=== PATIENT | male | born 1935 | race Caucasian/White ===

== ENCOUNTER → 2018-03-08 | Outpatient (CLI) | payer OTHER | END | disposition home or self-care (01) | LOC: C.LABMFLN 17:56 | PROVIDERS: ATTEND Family Medicine | DX: E03.9 Hypothyroidism, unspecified (principal); E78.5 Hyperlipidemia, unspecified ==

== ENCOUNTER 2021-12-16 10:36 | Observation (INO) ==
[2021-12-16] MEDS ORDERED: SODIUM CHLORIDE 0.9% 500 ML IV ONE (11:13)
--- NOTE | 2021-12-16 11:32 | Emergency Department Note ---
History of Present Illness General Chief complaint: Syncope Stated complaint: HERE 12/14, SYNCOPE EPISODE, POSS HIT HEAD Time Seen by Provider: 12/16/21 10:57 Source: patient Mode of arrival: ambulatory Limitations: no limitations History of Present Illness Provider complaint: Dizziness, syncope Onset (ago): hour(s) Location: head Maximum Pain Intensity: 4 Exacerbated By: + movement Associated symptoms: + other Treatments prior to arrival: none This is an 86-year-old male who presents the emergency department with daughter bedside due to concern for persistent dizziness and a syncopal event this morning. Patient states he felt dizzy when he first woke up in bed and sat in his bed for some time waiting for this to pass. He states he felt better enough to try and get to the restroom which is why he woke up initially. He states while standing and urinating in the bathroom he began to experience "spinning" and began to fall and lose consciousness. Patient states he did try to grab onto the toilet and does have a bruise on his right forearm as a result of this. Patient believes he may have been unconscious very briefly, but came to and was able to close little the toilet and then sit. He states he stopped for a while, and his daughter who stays with him overnight came to check on him. He eventually was able to stand up and go back to bed and felt slightly improved. Daughter states after she had to run home briefly she came back to check on him again and he complained of dizziness again. He states he did drink water this morning and took his usual medications. Daughter states he was recently restarted on a blood pressure medication. She states he historically has been very sensitive to medications. He denies fevers or chills, although does admit to a mild productive cough over the last several days. He denies any change in bowel or bladder function, denies chest pain, palpitations, shortness of breath, abdominal pain, or leg swelling. Daughter states he did have Covid back in July, and did seem to recover although did have complications including multiple DVT/PEs. Patient does have a prior history of DVT. He is currently ta long [place]. Pt seen during a time of high acuity and national emergency pandemic while wearing PPE. Home Medications Medication Instructions Recorded Confirmed Type A-C-E-zinc ox-cupric ox-lutein 1 tab PO DAILY 05/23/19 12/16/21 History [Ocular Vitamins] aspirin 81 mg tablet,delayed 81 mg PO DAILY #150 tab 05/23/19 12/16/21 Rx release dextran 70-hypromellose 0.1 %-0.3 1 drops OP DAILY ml 05/23/19 12/16/21 History % eye drops nitroglycerin 0.4 mg sublingual 0.4 mg SL .COMPLEX PRN tab 05/23/19 12/16/21 History tablet cetirizine 10 mg capsule 10 mg PO HS PRN cap 06/12/20 12/16/21 History pravastatin 80 mg tablet 80 mg PO DAILY #90 tab 12/15/20 12/16/21 Rx levothyroxine 50 mcg tablet 75 mcg PO DAILY #135 tab 03/15/21 12/16/21 Rx azelastine 137 mcg (0.1 %) nasal 2 spray INTRANASAL BID #30 ml 10/07/21 12/16/21 Rx spray aerosol amlodipine 5 mg tablet (Norvasc) 5 mg PO BID #60 tab 12/11/21 12/16/21 Rx rivaroxaban 20 mg tablet (Xarelto) 20 mg PO QPM 12/16/21 12/16/21 History Allergies Allergy/AdvReac Type Severity Reaction Status Date / Time rosuvastatin [From Crestor] AdvReac Intermediate cramps Verified 12/16/21 11:38 JENARO Inhibitors AdvReac Unknown PER PT'S Verified 12/16/21 11:38 DAUGHTER UNKNOWN SOME REQUIRED HOSPITALIZATION. acyclovir AdvReac Unknown PER PT'S Verified 12/16/21 11:38 DAUGHTER UNKNOWN SOME REQUIRED HOSPITALIZATION. amoxicillin AdvReac Unknown PER PT'S Verified 12/16/21 11:38 DAUGHTER UNKNOWN SOME REQUIRED HOSPITALIZATION. atorvastatin AdvReac Unknown PER PT'S Verified 12/16/21 11:38 DAUGHTER UNKNOWN SOME REQUIRED HOSPITALIZATION. benzonatate AdvReac Unknown PER PT'S Verified 12/16/21 11:38 [From Carrillo Bell] DAUGHTER UNKNOWN SOME REQUIRED HOSPITALIZATION. Beta-Adrenergic Agents AdvReac Unknown PER PT'S Verified 12/16/21 11:38 DAUGHTER UNKNOWN SOME REQUIRED HOSPITALIZATION. cefaclor AdvReac Unknown PER PT'S Verified 12/16/21 11:38 DAUGHTER UNKNOWN SOME REQUIRED HOSPITALIZATION. cephalexin AdvReac Unknown PER PT'S Verified 12/16/21 11:38 DAUGHTER UNKNOWN SOME REQUIRED HOSPITALIZATION. ciprofloxacin AdvReac Unknown PER PT'S Verified 12/16/21 11:38 DAUGHTER UNKNOWN SOME REQUIRED HOSPITALIZATION. clarithromycin AdvReac Unknown PER PT'S Verified 12/16/21 11:38 DAUGHTER UNKNOWN SOME REQUIRED HOSPITALIZATION. lisinopril AdvReac Unknown PER PT'S Verified 12/16/21 11:38 DAUGHTER UNKNOWN SOME REQUIRED HOSPITALIZATION. metoprolol [From Toprol XL] AdvReac Unknown PER PT'S Verified 12/16/21 11:38 DAUGHTER UNKNOWN SOME REQUIRED HOSPITALIZATION. morphine AdvReac Unknown PER PT'S Verified 12/16/21 11:38 DAUGHTER UNKNOWN SOME REQUIRED HOSPITALIZATION. phenylpropanolamine AdvReac Unknown PER PT'S Verified 12/16/21 11:38 DAUGHTER UNKNOWN SOME REQUIRED HOSPITALIZATION. promethazine [From Phenergan] AdvReac Unknown PER PT'S Verified 12/16/21 11:38 DAUGHTER UNKNOWN SOME REQUIRED HOSPITALIZATION. propranolol AdvReac Unknown PER PT'S Verified 12/16/21 11:38 DAUGHTER UNKNOWN SOME REQUIRED HOSPITALIZATION. simvastatin AdvReac Unknown PER PT'S Verified 12/16/21 11:38 DAUGHTER UNKNOWN SOME REQUIRED HOSPITALIZATION. Sulfa (Sulfonamide AdvReac Unknown PER PT'S Verified 12/16/21 11:38 Antibiotics) DAUGHTER UNKNOWN SOME REQUIRED HOSPITALIZATION. theophylline AdvReac Unknown PER PT'S Verified 12/16/21 11:38 DAUGHTER UNKNOWN SOME REQUIRED HOSPITALIZATION. tramadol AdvReac Unknown PER PT'S Verified 12/16/21 11:38 DAUGHTER UNKNOWN SOME REQUIRED HOSPITALIZATION. Past Med/Surg History Medical History (Updated 12/16/21 @ 20:01 by Lissett Benson DO) Allergic rhinitis Asplenia Benign essential hypertension CAD (coronary artery disease) H/O primary malignant neoplasm of urinary bladder History of pulmonary embolism Hyperlipidemia Hypothyroidism Lumbar radiculopathy Peripheral neuropathy Primary hypercoagulable state Stroke Surgical History H/O splenectomy History of bladder surgery Hx of CABG S/P appendectomy S/P carotid endarterectomy S/P knee replacement Family History Mother Heart disease Hypertension Brother , Bladder Heart disease Diabetes Hypertension Cancer Myocardial infarction Father Hypertension Son No problems noted. Sister Hypertension Denies family history of Ovarian cancer Prostate cancer Breast cancer Social History Smoking Status: Former smoker Tobacco Type: Pipe Age Started Using Tobacco: 15; Age Quit Using Tobacco: 64; Second Hand Exposure: Yes (Father smoked); Hx Alcohol Use: No Hx Substance Use: No Preferred Language: Latvian Communication Ability: Effective Visual Impairment: Limited Hearing Ability: Use of Hearing Aid Fisherman Helper Required: No Beliefs That Will Affect Care: None marital status: Current Living Situation: Spouse and Family Current Living Situation Comment: Son current occupational status: retired current occupation: [employer] How many Children do You have: 6 Feels Safe at Home: Yes Childhood Exposure to Second-Hand Smoke: Yes (Father smoked) Diet Comment: Regular diet caffeine: Yes (coffee) during the past year weight has: remained stable Dental Care, Regularly: No Physical Activity Frequency: Daily Physical Activity Frequency 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 Seatbelt Use: always Sunscreen Use: No Do you think of yourself as: straight/heterosexual Assistive Devices: Denture - Upper, Denture - Lower, Glasses, Hearing Aid - Left and Hearing Aid - Right Review of Systems A total of 10 systems reviewed and were otherwise negative All systems reviewed & are unremarkable except as noted in HPI & below Physical Exam Vital Signs Vital Signs - 24 hr 12/16/21 10:40 12/16/21 10:50 12/16/21 12:37 Temperature 36.6 C Temperature Source Temporal Artery Scan Pulse Rate 76 Pulse Rate [Apical] 64 Pulse Rhythm Regular Pulse Strength Normal Respiratory Rate 20 20 Respiratory Effort / Characteristics Non-Labored Spontaneous Respiratory Depth Normal Respiratory Pattern Regular Blood Pressure 151/82 H Blood Pressure [Left Arm] 166/91 H Blood Pressure Mean 105 Blood Pressure Mean [Left Arm] 116 Blood Pressure Position Sitting Pulse Oximetry 92 93 96 Oxygen Delivery Method Room Air Room Air Room Air Sepsis Recent Fever Within 48 Hours No Sepsis New/Unexplained Change in Mental Status No Sepsis Action Taken by Nursing No Action Required 12/16/21 13:33 12/16/21 14:18 12/16/21 16:00 Temperature Temperature Source Pulse Rate Pulse Rate [Apical] 73 77 75 Pulse Rhythm Pulse Strength Respiratory Rate 19 19 23 Respiratory Effort / Characteristics Non-Labored Non-Labored Respiratory Depth Respiratory Pattern Blood Pressure Blood Pressure [Left Arm] 193/88 H 151/78 H 150/75 H Blood Pressure Mean Blood Pressure Mean [Left Arm] 123 102 100 Blood Pressure Position Pulse Oximetry 94 95 95 Oxygen Delivery Method Room Air Room Air Room Air Sepsis Recent Fever Within 48 Hours Sepsis New/Unexplained Change in Mental Status Sepsis Action Taken by Nursing GENERAL: alert, well appearing, well nourished, no distress, non-toxic EYE EXAM: normal conjunctiva, PERRL and EOM's grossly intact OROPHARYNX: no exudate, no erythema, lips, buccal mucosa, and tongue normal and mucous membranes are moist NECK: supple, no nuchal rigidity, no adenopathy, non-tender LUNGS: Clear to auscultation. Normal chest wall mechanics, no w/r/r HEART: no murmurs, S1 normal and S2 normal ABDOMEN: abdomen soft, non-tender, normo-active bowel sounds, no masses, no rebound or guarding. BACK: Back is symmetrical on inspection and there is no deformity, no midline tenderness, no CVA tenderness. SKIN: no rashes and no bruising UPPER EXTREMITIES: upper extremities are grossly normal. FROM, nml pulses b/l. LOWER EXTREMITIES: No pitting edema. FROM, nml pulses b/l. NEURO EXAM: Normal sensorium, cranial nerves II-XII grossly intact, normal speech, no gross weakness of arms, no gross weakness of legs. No ataxia. Gross sensation intact. Course Course 1405: Updated pt and daughter at bedside. BP still fluctuates. Pt states he still feels dizzy. Administered Medications Discontinued Medications Sodium Chloride (Nss) 500 mls @ 999 mls/hr IV .Q31M ONE Stop: 12/16/21 11:43 Last Infusion: 12/16/21 13:00 Dose: 0 mls/hr Documented by: [id number] Admin: 12/16/21 12:22 Dose: 999 mls/hr Documented by: [id number] Ioversol (Optiray 320 125ml) 121 ml IV ONCE ONE Stop: 12/16/21 13:26 Last Admin: 12/16/21 13:25 Dose: 121 ml Documented by: [id number] Medical Decision Making Differential Diagnosis Differential diagnosis includes etiologies such as benign positional vertigo, dehydration, hypovolemia, anemia, tumor, infection, hypoglycemia, electrolyte abnormalities, cardiac sources, intracerebral event, toxicologic, neurologic, as well as others were entertained. Medical Records Attestation: I reviewed the patient's medical records. Home Medications Current Medication List: was personally reviewed by me Laboratory Data Attestation: I reviewed the patient's lab results. Result diagrams: 12/16/21 12:05 12/16/21 12:05 Lab Results 12/16/21 12/16/21 12/16/21 Range/Units 12:05 12:05 12:05 WBC 9.67 (4.8-10.8) K/uL RBC 4.82 (4.7-6.1) M/uL Hgb 14.7 (14.0-18.0) g/dL Hct 44.2 (42-52) % MCV 91.7 (80-100) fL MCH 30.5 (25-34) pg MCHC 33.3 (32-36) g/dL RDW Std Deviation 46.5 H (36.4-46.3) fL RDW Coeff of Ashley 13.8 (11.5-14.5) % Plt Count 323 (130-400) K/uL MPV 10.6 H (7.4-10.4) fL Immature Gran % (Auto) 0.2 % Neut % (Auto) 52.3 % Lymph % (Auto) 29.7 % [place] % (Auto) 14.2 % Eos % (Auto) 2.7 % Baso % (Auto) 0.9 % Neut # (Auto) 5.06 (1.4-6.5) K/uL Lymph # (Auto) 2.87 (1.2-3.4) K/uL [place] # (Auto) 1.37 H (0.11-0.59) K/uL Eos # (Auto) 0.26 (0-0.5) K/uL Baso # (Auto) 0.09 (0-0.2) K/uL Immature Gran # (Auto) 0.02 (0.00-0.02) K/uL Sodium 140 (136-145) mmol/L Potassium 4.7 (3.5-5.1) mmol/L Chloride 108 H (98-107) mmol/L Carbon Dioxide 27 (21-32) mmol/L Anion Gap 5 (3-11) BUN 13 (6-23) mg/dl Creatinine 1.00 (0.6-1.4) mg/dl Est Cr Clr Drug Dosing 48.7 ml/min Est GFR ( Amer) 78.1 ml/min Est GFR (Non-Af Amer) 67.4 ml/min BUN/Creatinine Ratio 13.0 (10-20) Glucose 73 (70-99(Fasting)) mg/dl Calcium 9.7 (8.5-10.1) mg/dl Magnesium 2.1 (1.7-2.4) mg/dl Total Bilirubin 0.4 (0.2-1.0) mg/dl AST 20 (13-39) U/L ALT 14 (7-52) U/L Alkaline Phosphatase 80 (34-104) U/L Troponin I < 0.03 (0-0.04) ng/ml B-Natriuretic Peptide (0-100) pg/ml Total Protein 6.8 (6.0-8.3) gm/dl Albumin 3.9 (3.4-5.0) gm/dl Globulin 2.9 (2.5-4.0) gm/dl Albumin/Globulin Ratio 1.3 (0.9-2) Lipase 29 (11-82) U/L TSH 2.375 (0.300-4.500) uIu/ml Urine Color Urine Appearance (Clear) Urine pH (4.5-7.5) Ur Specific [place] (1.000-1.030) Urine Protein (Negative) Urine Glucose (UA) (Negative) Urine Ketones (Negative) Urine Blood (Negative) Urine Nitrite (Negative) Urine Bilirubin (Negative) Urine Urobilinogen (Negative) Ur Leukocyte Esterase (Negative) SARS-CoV-2, RNA, NAAT (NEGATIVE) 12/16/21 12/16/21 12/16/21 Range/Units 12:17 13:30 15:17 WBC (4.8-10.8) K/uL RBC (4.7-6.1) M/uL Hgb (14.0-18.0) g/dL Hct (42-52) % MCV (80-100) fL MCH (25-34) pg MCHC (32-36) g/dL RDW Std Deviation (36.4-46.3) fL RDW Coeff of Ashley (11.5-14.5) % Plt Count (130-400) K/uL MPV (7.4-10.4) fL Immature Gran % (Auto) % Neut % (Auto) % Lymph % (Auto) % [place] % (Auto) % Eos % (Auto) % Baso % (Auto) % Neut # (Auto) (1.4-6.5) K/uL Lymph # (Auto) (1.2-3.4) K/uL [place] # (Auto) (0.11-0.59) K/uL Eos # (Auto) (0-0.5) K/uL Baso # (Auto) (0-0.2) K/uL Immature Gran # (Auto) (0.00-0.02) K/uL Sodium (136-145) mmol/L Potassium (3.5-5.1) mmol/L Chloride (98-107) mmol/L Carbon Dioxide (21-32) mmol/L Anion Gap (3-11) BUN (6-23) mg/dl Creatinine (0.6-1.4) mg/dl Est Cr Clr Drug Dosing ml/min Est GFR ( Amer) ml/min Est GFR (Non-Af Amer) ml/min BUN/Creatinine Ratio (10-20) Glucose (70-99(Fasting)) mg/dl Calcium (8.5-10.1) mg/dl Magnesium (1.7-2.4) mg/dl Total Bilirubin (0.2-1.0) mg/dl AST (13-39) U/L ALT (7-52) U/L Alkaline Phosphatase (34-104) U/L Troponin I (0-0.04) ng/ml B-Natriuretic Peptide 89 (0-100) pg/ml Total Protein (6.0-8.3) gm/dl Albumin (3.4-5.0) gm/dl Globulin (2.5-4.0) gm/dl Albumin/Globulin Ratio (0.9-2) Lipase (11-82) U/L TSH (0.300-4.500) uIu/ml Urine Color [place] Urine Appearance Clear (Clear) Urine pH 8.0 H (4.5-7.5) Ur Specific [place] 1.009 (1.000-1.030) Urine Protein Negative (Negative) Urine Glucose (UA) Negative (Negative) Urine Ketones Negative (Negative) Urine Blood Negative (Negative) Urine Nitrite Negative (Negative) Urine Bilirubin Negative (Negative) Urine Urobilinogen Negative (Negative) Ur Leukocyte Esterase Negative (Negative) SARS-CoV-2, RNA, NAAT NEGATIVE (NEGATIVE) Imaging Data Radiologist's Impression: Chest X-Ray 12/16/21 11:13 XR chest 1V portable HISTORY: cough, syncope COMPARISON: None. FINDINGS: The cardiac silhouette is borderline enlarged. There are poststerno patricia changes. There are old, healed left-sided rib fractures. A few bibasilar linear densities favor subsegmental atelectasis are scarring. No focal lung consolidations to suggest pneumonia. No evidence for pulmonary edema. There is mild emphysema. There is a 5.4 cm lobular density at the right lung base. IMPRESSION: 1. No focal lung consolidations to suggest pneumonia. 2. Emphysema. 3. Mild cardiomegaly. 4. A 5.4 cm lobular density the right lung base. Although nonspecific, this favors a fat-containing Bochdalek hernia. Follow-up nonemergent chest CT can be used for confirmation or comparison to prior studies. ACT 112: Negative or not required by law. Electronically signed by: Parviz Alcantara M.D. 12/16/2021 11:[address] 12/16/21 11:13 CT OF THE HEAD WITHOUT CONTRAST CLINICAL HISTORY: dizzy, headache, blurred vision COMPARISON STUDY: Head CT December 14, 2021. CT DOSE: 1178.61 mGy.cm TECHNIQUE: Helical axial images of the head were obtained without IV contrast. Automated exposure control was utilized for the study. A dose lowering technique was utilized adhering to the principles of ALARA. FINDINGS: No acute intracranial hemorrhage, midline shift or mass effect is present. Left basal ganglia/periventricular infarcts are noted. There is associated mild dilatation of the left lateral ventricle. Basal cisterns are patent. There are no extra axial collections. There are no findings to suggest acute dural sinus thrombosis or acute territorial infarct. Right mastoid air cells are opacified. Left mastoid air cells are partially opacified. Right maxillary sinus is nearly entirely opacified. Extensive ethmoid and right femur sinus mucosal thickening is present. Mild left maxillary sinus mucosal thickening. These findings are unchanged. IMPRESSION: 1. No acute intracranial findings. 2. 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 No change in appearance of the brain. 3. Bilateral mastoid effusions and paranasal sinus disease, as above. ACT 112: Negative or not required by law. Electronically signed by: Jhon Elizondo M.D. 12/16/2021 1:37 PM Head CTA 12/16/21 11:13 HEAD & NECK CTA HISTORY: dizzy, headache, blurred vision TECHNIQUE: Multiaxial CT images of the head were performed following the intravenous administration of contrast to evaluate the major cerebral vessels. Multiaxial CT images of the neck were also performed following the intravenous administration of contrast to evaluate the major cervical vessels. Maximum intensity projection images were also obtained. A dose lowering technique was utilized adhering to the principles of ALARA. COMPARISON: Head CT 12/14/2021. FINDINGS: Head CTA: The major dural venous sinuses are patent. No significant stenosis or occlusion within the right MCA. The right A1 segment is absent likely on a devel opmental basis. The remaining bilateral ACAs are widely patent. Moderate multifocal narrowing of up to 60% within the proximal left MCA. There is a hypoplastic distal right vertebral artery demonstrating mild to moderate multifocal narrowing due to the calcified plaque. There is mild focal narrowing within the distal left vertebral artery due to the calcified plaque. There is a 5 mm segment of high-grade stenosis involving the proximal left SALES DATA ANALYST. The right SALES DATA ANALYST is widely patent. Calcified plaque within the bilateral carotid siphons resulting in mild diffuse narrowing of the left internal carotid artery and mild to moderate narrowing of the right internal carotid artery. The right internal carotid artery demonstrates up to 50% stenosis. No aneurysms identified. Near- complete opacification of the right maxillary sinus, ethmoid air cells, and right frontal sinus. This remains unchanged. Bilateral mastoid effusions right greater than left and opacification the right middle ear cavity persists. Neck CTA: Mild focal narrowing within the proximal right subclavian artery due to the calcified plaque. Calcified plaque within the normal caliber aortic arch. The bilateral common carotid and vertebral arteries are widely patent. The left internal carotid artery is widely patent. There is mild focal narrowing of approximately 30% within the distal right internal carotid artery best seen on image 321. Focal nodule within the left side of the vallecula measuring 9 mm. This is best seen image 240. IMPRESSION: 1. A 5 mm segment of high-grade stenosis involving the proximal left SALES DATA ANALYST. 2. Multifocal areas of [id number] narrowing within the left MCA, bilateral distal vertebral arteries, distal right cervical internal carotid artery, bilateral intracranial internal carotid arteries. 3. No aneurysm identified. 4. The bilateral common carotid left internal carotid artery widely patent. 5. A 9 mm nodule left side of the vallecula. Direct visualization recommended for further evaluation. ACT 112: Negative or not required by law. Electronically signed by: Parviz Alcantara M.D. 12/16/2021 1:51 PM Neck CTA 12/16/21 11:13 HEAD & NECK CTA HISTORY: dizzy, headache, blurred vision TECHNIQUE: Multiaxial CT images of the head were performed following the intravenous administration of contrast to evaluate the major cerebral vessels. Multiaxial CT images of the neck were also performed following the intravenous administration of contrast to evaluate the major cervical vessels. Maximum intensity projection images were also obtained. A dose lowering technique was utilized adhering to the principles of ALARA. COMPARISON: Head CT 12/14/2021. FINDINGS: Head CTA: The major dural venous sinuses are patent. No significant stenosis or occlusion within the right MCA. The right A1 segment is absent likely on a developmental basis. The remaining bilateral ACAs are widely patent. Moderate multifocal narrowing of up to 60% within the proximal left MCA. There is a hypoplastic distal right vertebral artery demonstrating mild to moderate multifocal narrowing due to the calcified plaque. There is mild focal narrowing within the distal left vertebral artery due to the calcified plaque. There is a 5 mm segment of high-grade stenosis involving the proximal left SALES DATA ANALYST. The right SALES DATA ANALYST is widely patent. Calcified plaque within the bilateral carotid siphons resulting in mild diffuse narrowing of the left internal carotid artery and mild to moderate narrowing of the right internal carotid artery. The right internal carotid artery demonstrates up to 50% stenosis. No aneurysms identified. Near- complete opacification of the right maxillary sinus, ethmoid air cells, and right frontal sinus. This remains unchanged. Bilateral mastoid effusions right greater than left and opacification the right middle ear cavity persists. Neck CTA: Mild focal narrowing within the proximal right subclavian artery due to the calcified plaque. Calcified plaque within the normal caliber aortic arch. The bilateral common carotid and vertebral arteries are widely patent. The left internal carotid artery is widely patent. There is mild focal narrowing of approximately 30% within the distal right internal carotid artery best seen on image 321. Focal nodule within the left side of the vallecula measuring 9 mm. This is best seen image 240. IMPRESSION: 1. A 5 mm segment of high-grade stenosis involving the proximal left SALES DATA ANALYST. 2. Multifocal areas of [id number] narrowing within the left MCA, bilateral distal vertebral arteries, distal right cervical internal carotid artery, bilateral intracranial internal carotid arteries. 3. No aneurysm identified. 4. The bilateral common carotid left internal carotid artery widely patent. 5. A 9 mm nodule left side of the vallecula. Direct visualization recommended for further evaluation. ACT 112: Negative or not required by law. Electronically signed by: Parviz Alcantara M.D. 12/16/2021 1:51 PM ECG Data Attestation: I personally reviewed and interpreted this ECG as follows: Indication: + other Rate (beats per minute): 68 Rhythm: + normal sinus ECG Intervals/blocks: + Normal QRS and + Normal QT ECG [place]: + Normal ECG ST segments: + Nonspecific ST abnormalities ECG Findings: + PVCs MDM Narrative This is an 86-year-old male presents emergency department with family bedside due to concern for dizziness and a syncopal event earlier this morning. Patient states he awoke dizzy, and had a syncopal event in the bathroom. Family bedside states he did recently have new medication as well as recent head trauma with negative imaging at that time. No prior similar episodes of dizziness before this morning. Labs drawn and sent and were reassuring, patient sent for CT and CT angiography of the head neck which did show several stenotic and narrowed areas including one at the SALES DATA ANALYST which could be contributing to dizziness. Patient is already anticoagulated on antiplatelet therapy. Given that these likely were evolving over prolonged period of time it is unclear if this is the sole etiology versus other contributions from recent closed head injury/concussion, or even adverse reaction to recent initiation of Norvasc twice daily. Patient continued to complain of dizziness here. Patient did have labile blood pressure noted, no ectopy or dysrhythmia noted on telemetry, EKG otherwise reassuring. Given persistent dizziness, need for additional evaluation, case discussed with hospitalist for additional inpatient evaluation and management. An order was placed for continuous cardiac monitoring. The monitor shows a rate of _78_ with normal sinus_ rhythm. Impression & Plan Dizziness, Syncope Discharge Plan Visit Data Chief Complaint: Syncope Stated Complaint: HERE 12/14, SYNCOPE EPISODE, POSS HIT HEAD ED Provider: Lissett Benson Discharge Problem: Dizziness, Syncope Patient Disposition: Admitted As Inpatient Discharge Instructions Interventions: ED Discharge Assessment Last Done: 12/16/21 18:20 Discharge Problem: Syncope Qualifiers: Syncope type: unspecified Qualified Code(s): R55 - Syncope and collapse
--- NOTE | 2021-12-16 11:48 | XRay Report ---
XR chest 1V portable HISTORY: cough, syncope COMPARISON: None. FINDINGS: The cardiac silhouette is borderline enlarged. There are poststernotomy changes. There are old, healed left-sided rib fractures. A few bibasilar linear densities favor subsegmental atelectasis are scarring. No focal lung consolidations to suggest pneumonia. No evidence for pulmonary edema. Th ere is mild emphysema. There is a 5.4 cm lobular density at the right lung base. IMPRESSION: 1. No focal lung consolidations to suggest pneumonia. 2. Emphysema. 3. Mild cardiomegaly. 4. A 5.4 cm lobular density the right lung base. Although nonspecific, this favors a fat-containing B ochdalek hernia. Follow-up nonemergent chest CT can be used for confirmation or comparison to prior s tudies. ACT 112: Negative or not required by law. Electronically signed by: Parviz Alcantara M.D. 12/16/2021 11:46 AM
[2021-12-16 12:19] LABS: Basophils # (auto) 0.09 K/uL (0-0.2); Basophils % (auto) 0.9 %; Eosinophils # (auto) 0.26 K/uL (0-0.5); Eosinophils % (auto) 2.7 %; Hematocrit (blood only) 44.2 % (42-52); Hemoglobin 14.7 g/dL (14.0-18.0); Immature Granulocytes # (auto) 0.02 K/uL (0.00-0.02); Immature Granulocytes % (auto) 0.2 %; Lymphocytes # (auto) 2.87 K/uL (1.2-3.4); Lymphocytes % (auto) 29.7 %; Mean Corpuscular Hemoglobin 30.5 pg (25-34); Mean Corpuscular Hgb Conc 33.3 g/dL (32-36); Mean Corpuscular Volume 91.7 fL (80-100); Mean Platelet Volume 10.6 fL (7.4-10.4); Monocytes # (auto) 1.37 K/uL (0.11-0.59); Monocytes % (auto) 14.2 %; Neutrophils # (auto) 5.06 K/uL (1.4-6.5); Neutrophils % (auto) 52.3 %; Platelet Count 323 K/uL (130-400); RDW Coefficient of Variation 13.8 % (11.5-14.5); RDW Standard Deviation 46.5 fL (36.4-46.3); Red Blood Count 4.82 M/uL (4.7-6.1); White Blood Count 9.67 K/uL (4.8-10.8)
[2021-12-16 12:44] LABS: Troponin I < 0.03 ng/ml (0-0.04)
[2021-12-16 12:58] LABS: Alanine Aminotransferase 14 U/L (7-52); Albumin Globulin Ratio 1.3 (0.9-2); Albumin Level 3.9 gm/dl (3.4-5.0); Alkaline Phosphatase 80 U/L (34-104); Anion Gap 5 (3-11); Aspartate Aminotransferase 20 U/L (13-39); Bilirubin,Total 0.4 mg/dl (0.2-1.0); Blood Urea Nitrogen 13 mg/dl (6-23); Calcium 9.7 mg/dl (8.5-10.1); Carbon Dioxide 27 mmol/L (21-32); Chloride 108 mmol/L (98-107); Creatinine Clr Calc Pharmacy 48.7 ml/min; Est GFR (African American) 78.1 ml/min; Est GFR (Non-African American) 67.4 ml/min; Globulin 2.9 gm/dl (2.5-4.0); Glucose 73 mg/dl (70-99(Fasting)); Lipase 29 U/L (11-82); Magnesium 2.1 mg/dl (1.7-2.4); Potassium 4.7 mmol/L (3.5-5.1); Sodium 140 mmol/L (136-145); Total Protein 6.8 gm/dl (6.0-8.3)
--- NOTE | 2021-12-16 13:08 | Electrocardiogram Report ---
Test Reason : Blood Pressure : / mmHG Vent. Rate : 068 BPM Atrial Rate : 068 BPM P-R Int : 192 ms QRS Dur : 094 ms QT Int : 436 ms P-R-T Axes : 012 -07 037 degrees QTc Int : 463 ms Sinus rhythm with occasional Premature ventricular complexes Septal infarct , age undetermined Abnormal ECG No previous ECGs available Confirmed by Tong Green ([id number]) on 12/16/2021 1:08:29 PM Referred By: REFERRED SELF Confirmed By:Tong Green
[2021-12-16] MEDS ORDERED: OPTIRAY 320 125ml IV ONE (13:25)
--- NOTE | 2021-12-16 13:39 | CT Scan Report ---
CT OF THE HEAD WITHOUT CONTRAST CLINICAL HISTORY: dizzy, headache, blurred vision COMPARISON STUDY: Head CT December 14, 2021. CT DOSE: 1178.61 mGy.cm TECHNIQUE: Helical axial images of the head were obtained without IV contrast. Automated exposure con trol was utilized for the study. A dose lowering technique was utilized adhering to the principles o f ALARA. FINDINGS: No acute intracranial hemorrhage, midline shift or mass effect is present. Left basal gangl ia/periventricular infarcts are noted. There is associated mild dilatation of the left lateral ventri paco. Basal cisterns are patent. There are no extra axial collections. There are no findings to sugges t acute dural sinus thrombosis or acute territorial infarct. Right mastoid air cells are opacified. L eft mastoid air cells are partially opacified. Right maxillary sinus is nearly entirely opacified. Ex tensive ethmoid and right femur sinus mucosal thickening is present. Mild left maxillary sinus mucosa l thickening. These findings are unchanged. IMPRESSION: 1. No acute intracranial findings. 2. 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 No change in appearance of the brain. 3. Bilateral mastoid effusions and paranasal sinus disease, as above. ACT 112: Negative or not required by law. Electronically signed by: Jhon Elizondo M.D. 12/16/2021 1:37 PM
[2021-12-16 13:51] LABS: Appearance Urine Clear (Clear); Bilirubin Urine Negative (Negative); Blood Urine Negative (Negative); Color Urine Orange; Glucose Urine UA Negative (Negative); Ketones Urine Negative (Negative); Leukocyte Esterase Urine Negative (Negative); Nitrite Urine Negative (Negative); Protein Urine Negative (Negative); Specific Gravity Urine 1.009 (1.000-1.030); Urobilinogen Urine Negative (Negative)
--- NOTE | 2021-12-16 13:52 | CT Scan Report ---
HEAD & NECK CTA HISTORY: dizzy, headache, blurred vision TECHNIQUE: Multiaxial CT images of the head were performed following the intravenous administration o f contrast to evaluate the major cerebral vessels. Multiaxial CT images of the neck were also perform ed following the intravenous administration of contrast to evaluate the major cervical vessels. Maxim um intensity projection images were also obtained. A dose lowering technique was utilized adhering to the principles of ALARA. COMPARISON: Head CT 12/14/2021. FINDINGS: Head CTA: The major dural venous sinuses are patent. No significant stenosis or occlusion within the right MCA. The right A1 segment is absent likely on a developmental basis. The remaining bilateral AC As are widely patent. Moderate multifocal narrowing of up to 60% within the proximal left MCA. There is a hypoplastic distal right vertebral artery demonstrating mild to moderate multifocal narrowing du e to the calcified plaque. There is mild focal narrowing within the distal left vertebral artery due to the calcified plaque. There is a 5 mm segment of high-grade stenosis involving the proximal left P CA. The right SUPERVISOR COOPERAGE SHOP is widely patent. Calcified plaque within the bilateral carotid siphons resulting i n mild diffuse narrowing of the left internal carotid artery and mild to moderate narrowing of the ri ght internal carotid artery. The right internal carotid artery demonstrates up to 50% stenosis. No an eurysms identified. Near-complete opacification of the right maxillary sinus, ethmoid air cells, and right frontal sinus. This remains unchanged. Bilateral mastoid effusions right greater than left and opacification the right middle ear cavity persists. Neck CTA: Mild focal narrowing within the proximal right subclavian artery due to the calcified plaqu e. Calcified plaque within the normal caliber aortic arch. The bilateral common carotid and vertebral arteries are widely patent. The left internal carotid artery is widely patent. There is mild focal n arrowing of approximately 30% within the distal right internal carotid artery best seen on image 321. Focal nodule within the left side of the vallecula measuring 9 mm. This is best seen image 240. IMPRESSION: 1. A 5 mm segment of high-grade stenosis involving the proximal left SUPERVISOR COOPERAGE SHOP. 2. Multifocal areas of iptc-[id number] narrowing within the left MCA, bilateral distal vertebral art eries, distal right cervical internal carotid artery, bilateral intracranial internal carotid arterie s. 3. No aneurysm identified. 4. The bilateral common carotid left internal carotid artery widely patent. 5. A 9 mm nodule left side of the vallecula. Direct visualization recommended for further evaluation. ACT 112: Negative or not required by law. Electronically signed by: Parviz Alcantara M.D. 12/16/2021 1:51 PM
--- NOTE | 2021-12-16 13:52 | CT Scan Report ---
HEAD & NECK CTA HISTORY: dizzy, headache, blurred vision TECHNIQUE: Multiaxial CT images of the head were performed following the intravenous administration o f contrast to evaluate the major cerebral vessels. Multiaxial CT images of the neck were also perform ed following the intravenous administration of contrast to evaluate the major cervical vessels. Maxim um intensity projection images were also obtained. A dose lowering technique was utilized adhering to the principles of ALARA. COMPARISON: Head CT 12/14/2021. FINDINGS: Head CTA: The major dural venous sinuses are patent. No significant stenosis or occlusion within the right MCA. The right A1 segment is absent likely on a developmental basis. The remaining bilateral AC As are widely patent. Moderate multifocal narrowing of up to 60% within the proximal left MCA. There is a hypoplastic distal right vertebral artery demonstrating mild to moderate multifocal narrowing du e to the calcified plaque. There is mild focal narrowing within the distal left vertebral artery due to the calcified plaque. There is a 5 mm segment of high-grade stenosis involving the proximal left P CA. The right ASSEMBLY TECHNICIAN is widely patent. Calcified plaque within the bilateral carotid siphons resulting i n mild diffuse narrowing of the left internal carotid artery and mild to moderate narrowing of the ri ght internal carotid artery. The right internal carotid artery demonstrates up to 50% stenosis. No an eurysms identified. Near-complete opacification of the right maxillary sinus, ethmoid air cells, and right frontal sinus. This remains unchanged. Bilateral mastoid effusions right greater than left and opacification the right middle ear cavity persists. Neck CTA: Mild focal narrowing within the proximal right subclavian artery due to the calcified plaqu e. Calcified plaque within the normal caliber aortic arch. The bilateral common carotid and vertebral arteries are widely patent. The left internal carotid artery is widely patent. There is mild focal n arrowing of approximately 30% within the distal right internal carotid artery best seen on image 321. Focal nodule within the left side of the vallecula measuring 9 mm. This is best seen image 240. IMPRESSION: 1. A 5 mm segment of high-grade stenosis involving the proximal left ASSEMBLY TECHNICIAN. 2. Multifocal areas of keum-it-tbofuyss narrowing within the left MCA, bilateral distal vertebral art eries, distal right cervical internal carotid artery, bilateral intracranial internal carotid arterie s. 3. No aneurysm identified. 4. The bilateral common carotid left internal carotid artery widely patent. 5. A 9 mm nodule left side of the vallecula. Direct visualization recommended for further evaluation. ACT 112: Negative or not required by law. Electronically signed by: Parviz Alcantara M.D. 12/16/2021 1:51 PM
--- NOTE | 2021-12-16 17:04 | History & Physical Report ---
Date of Service December 16, 2021 Assessment & Plan (1) Dizziness: Plan: Most likely secondary to recent re-introduction of amlodipine in setting of chronic high grade intra-cranial stenosis, however history and physical make this difficult to confirm. Also having some vertiginous symptoms although since it is not while lying flat doubtful truely vertiginous. Orthostatics q shift Stop amlodipine Monitor on telemetry for arrhythmia PT/OT (2) Hx of CABG: Plan: Continue clopidogrel, Xarelto, pravastatin (3) History of pulmonary embolism: Plan: Prior history of multiple PE/DVT. Continue Xarelto (4) Hypothyroidism: Plan: TSH 2.375 Continue levothyroxine 75 mcg PO daily Plan: VTE Prophylaxis - Xarelto Diet - heart healthy Disposition - observation status to med/tele Admission and Anticipated Discharge Date Admission Date: Dec 16, 2021 History of Present Illness Chief Complaint: Dizziness Primary Care Provider: Boaz Parikh DO Da Garduno is an 86 year old male who presents to the ER with dizziness. Difficult to patient to give a good history, daughter was no longer present in the ER when admitted. He reports dizziness whenever he gets up, resolves with sitting or laying for a while. Also has a room spinning sensation. He denies any full syncopal episodes. Per ER provider who took history from daughter who was at bedside - he had a syncopal event this morning. He recently restarted on his amlodipine at 5mg PO BID filled on 12/11. Previously this was discontinued at [facility] in July 2021 after an admission for DVT where he had a low blood pr essure. He denies any history of vertigo. He thinks he last took amlodipine last night. Despite not taking amlodipine today he remains dizzy on standing in the ER and since he lives alone (although his daughter stays with him for a lot of the time) it was felt to be unsafe to discharge him home at this time. He was referred to medicine for admission and ongoing management of dizziness/syncope. Allergies Allergy/AdvReac Type Severity Reaction Status Date / Time rosuvastatin [From Crestor] AdvReac Intermediate cramps Verified 12/16/21 11:38 JENARO Inhibitors AdvReac Unknown PER PT'S Verified 12/16/21 11:38 DAUGHTER UNKNOWN SOME REQUIRED HOSPITALIZATION. acyclovir AdvReac Unknown PER PT'S Verified 12/16/21 11:38 DAUGHTER UNKNOWN SOME REQUIRED HOSPITALIZATION. amoxicillin AdvReac Unknown PER PT'S Verified 12/16/21 11:38 DAUGHTER UNKNOWN SOME REQUIRED HOSPITALIZATION. atorvastatin AdvReac Unknown PER PT'S Verified 12/16/21 11:38 DAUGHTER UNKNOWN SOME REQUIRED HOSPITALIZATION. benzonatate AdvReac Unknown PER PT'S Verified 12/16/21 11:38 [From Carrillo Bell] DAUGHTER UNKNOWN SOME REQUIRED HOSPITALIZATION. Beta-Adrenergic Agents AdvReac Unknown PER PT'S Verified 12/16/21 11:38 DAUGHTER UNKNOWN SOME REQUIRED HOSPITALIZATION. cefaclor AdvReac Unknown PER PT'S Verified 12/16/21 11:38 DAUGHTER UNKNOWN SOME REQUIRED HOSPITALIZATION. cephalexin AdvReac Unknown PER PT'S Verified 12/16/21 11:38 DAUGHTER UNKNOWN SOME REQUIRED HOSPITALIZATION. ciprofloxacin AdvReac Unknown PER PT'S Verified 12/16/21 11:38 DAUGHTER UNKNOWN SOME REQUIRED HOSPITALIZATION. clarithromycin AdvReac Unknown PER PT'S Verified 12/16/21 11:38 DAUGHTER UNKNOWN SOME REQUIRED HOSPITALIZATION. lisinopril AdvReac Unknown PER PT'S Verified 12/16/21 11:38 DAUGHTER UNKNOWN SOME REQUIRED HOSPITALIZATION. metoprolol [From Toprol XL] AdvReac Unknown PER PT'S Verified 12/16/21 11:38 DAUGHTER UNKNOWN SOME REQUIRED HOSPITALIZATION. morphine AdvReac Unknown PER PT'S Verified 12/16/21 11:38 DAUGHTER UNKNOWN SOME REQUIRED HOSPITALIZATION. phenylpropanolamine AdvReac Unknown PER PT'S Verified 12/16/21 11:38 DAUGHTER UNKNOWN SOME REQUIRED HOSPITALIZATION. promethazine [From Phenergan] AdvReac Unknown PER PT'S Verified 12/16/21 11:38 DAUGHTER UNKNOWN SOME REQUIRED HOSPITALIZATION. propranolol AdvReac Unknown PER PT'S Verified 12/16/21 11:38 DAUGHTER UNKNOWN SOME REQUIRED HOSPITALIZATION. simvastatin AdvReac Unknown PER PT'S Verified 12/16/21 11:38 DAUGHTER UNKNOWN SOME REQUIRED HOSPITALIZATION. Sulfa (Sulfonamide AdvReac Unknown PER PT'S Verified 12/16/21 11:38 Antibiotics) DAUGHTER UNKNOWN SOME REQUIRED HOSPITALIZATION. theophylline AdvReac Unknown PER PT'S Verified 12/16/21 11:38 DAUGHTER UNKNOWN SOME REQUIRED HOSPITALIZATION. tramadol AdvReac Unknown PER PT'S Verified 12/16/21 11:38 DAUGHTER UNKNOWN SOME REQUIRED HOSPITALIZATION. Home Medications Medication Instructions Recorded Confirmed Type A-C-E-zinc ox-cupric ox-lutein 1 tab PO DAILY 05/23/19 12/16/21 History [Ocular Vitamins] aspirin 81 mg tablet,delayed 81 mg PO DAILY #150 tab 05/23/19 12/16/21 Rx release dextran 70-hypromellose 0.1 %-0.3 1 drops OP DAILY ml 05/23/19 12/16/21 History % eye drops nitroglycerin 0.4 mg sublingual 0.4 mg SL .COMPLEX PRN tab 05/23/19 12/16/21 History tablet cetirizine 10 mg capsule 10 mg PO HS PRN cap 06/12/20 12/16/21 History pravastatin 80 mg tablet 80 mg PO DAILY #90 tab 12/15/20 12/16/21 Rx levothyroxine 50 mcg tablet 75 mcg PO DAILY #135 tab 03/15/21 12/16/21 Rx azelastine 137 mcg (0.1 %) nasal 2 spray INTRANASAL BID #30 ml 10/07/21 12/16/21 Rx spray aerosol amlodipine 5 mg tablet (Norvasc) 5 mg PO BID #60 tab 12/11/21 12/16/21 Rx rivaroxaban 20 mg tablet (Xarelto) 20 mg PO QPM 12/16/21 12/16/21 History Past Med/Surg History Medical History (Updated 12/16/21 @ 20:01 by Lissett Benson DO) Allergic rhinitis Asplenia Benign essential hypertension CAD (coronary artery disease) H/O primary malignant neoplasm of urinary bladder History of pulmonary embolism Hyperlipidemia Hypothyroidism Lumbar radiculopathy Peripheral neuropathy Primary hypercoagulable state Stroke Surgical History H/O splenectomy History of bladder surgery Hx of CABG S/P appendectomy S/P carotid endarterectomy S/P knee replacement Family History Mother Heart disease Hypertension Brother , Bladder Heart disease Diabetes Hypertension Cancer Myocardial infarction Father Hypertension Son No problems noted. Sister Hypertension Denies family history of Ovarian cancer Prostate cancer Breast cancer Social History Smoking Status: Unknown if ever smoked Tobacco Type: Pipe Age Started Using Tobacco: 15; Age Quit Using Tobacco: 64; Second Hand Exposure: Yes (Father smoked); Hx Alcohol Use: No Hx Substance Use: No Preferred Language: Armenian Communication Ability: Effective Visual Impairment: Limited Hearing Ability: Use of Hearing Aid Director Supplier Quality Required: No Beliefs That Will Affect Care: None marital status: Current Living Situation: Family Current Living Situation Comment: lives with son, daughter lives close by current occupational status: retired current occupation: [employer] How many Children do You have: 6 Other Information That Helps Us Care for You: No Feels Safe at Home: Yes Safety Concerns: Feels Safe At This Time Childhood Exposure to Second-Hand Smoke: Yes (Father smoked) Diet Comment: Regular diet caffeine: Yes (coffee) during the past year weight has: remained stable Dental Care, Regularly: No Physical Activity Frequency: Daily Physical Activity Frequency 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 Use: always Sunscreen Use: No Do you think of yourself as: straight/heterosexual Assistive Devices: Glasses and Hearing Aid - Bilateral Review of Systems Review of Systems: All systems reviewed & are unremarkable except as noted in HPI & below Physical Exam Constitutional: WD/WN, vitals as above no acute distress Eyes: PERRL, conjunctivae normal, anicteric sclerae ENMT: external ear and nose normal, oropharynx normal Neck: trachea midline, no thyromegaly Respiratory: normal respiratory effort, lungs clear to auscultation Cardiovascular: RRR, no murmur, no edema Gastrointestinal (Abdomen): normal bowel sounds, soft, nontender, no hepatos plenomegaly Musculoskeletal: no cyanosis or clubbing, extremities motor strength 5/5 Skin: no rashes, warm and dry Neurologic: moves all extremities and awake; no focal motor deficits and not confused Speech / Cognition: normal speech Motor/Sensory: no tremor and no pronator drift Psychiatric: A+Ox3, euthymic affect Results & Data Results & Data ([facility]) Vital Signs (Past 12 Hours) Vital Signs Temp Pulse Pulse Resp BP BP Pulse Ox 12/16/21 16:00 75 23 150/75 H 95 12/16/21 14:18 77 19 151/78 H 95 12/16/21 13:33 73 19 193/88 H 94 12/16/21 12:37 64 20 166/91 H 96 12/16/21 10:50 93 02/28/22 10:40 36.6 C 76 20 151/82 H 92 Laboratory Results Abnormal lab results 12/16/21 12/16/21 12/16/21 Range/Units 12:05 12:05 13:30 RDW Std Deviation 46.5 H (36.4-46.3) fL MPV 10.6 H (7.4-10.4) fL [place] # (Auto) 1.37 H (0.11-0.59) K/uL Chloride 108 H (98-107) mmol/L Urine pH 8.0 H (4.5-7.5) Diagnostic Findings XR chest 1V portable HISTORY: cough, syncope COMPARISON: None. FINDINGS: The cardiac silhouette is borderline enlarged. There are poststernotomy changes. There are old, healed left-sided rib fractures. A few bibasilar linear densities favor subsegmental atelectasis are scarring. No focal lung consolidations to suggest pneumonia. No evidence for pulmonary edema. There is mild emphysema. There is a 5.4 cm lobular density at the right lung base. IMPRESSION: 1. No focal lung consolidations to suggest pneumonia. 2. Emphysema. 3. Mild cardiomegaly. 4. A 5.4 cm lobular density the right lung base. Although nonspecific, this favors a fat-containing Bochdalek hernia. Follow-up nonemergent chest CT can be used for confirmation or comparison to prior studies. CT OF THE HEAD WITHOUT CONTRAST CLINICAL HISTORY: dizzy, headache, blurred vision COMPARISON STUDY: Head CT December 14, 2021. CT DOSE: 1178.61 mGy.cm TECHNIQUE: Helical axial images of the head were obtained without IV contrast. Automated exposure control was utilized for the study. A dose lowering technique was utilized adhering to the principles of ALARA. FINDINGS: No acute intracranial hemorrhage, midline shift or mass effect is present. Left basal ganglia/periventricular infarcts are noted. There is associated mild dilatation of the left lateral ventricle. Basal cisterns are patent. There are no extra axial collections. There are no findings to suggest acute dural sinus thrombosis or acute territorial infarct. Right mastoid air cells are opacified. Left mastoid air cells are partially opacified. Right maxillary sinus is nearly entirely opacified. Extensive ethmoid and right femur sinus mucosal thickening is present. Mild left maxillary sinus mucosal thickening. These findings are unchanged. IMPRESSION: 1. No acute intracranial findings. 2. 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 No change in appearance of the brain. 3. Bilateral mastoid effusions and paranasal sinus disease, as above. HEAD & NECK CTA HISTORY: dizzy, headache, blurred vision TECHNIQUE: Multiaxial CT images of the head were performed following the in travenous administration of contrast to evaluate the major cerebral vessels. Multiaxial CT images of the neck were also performed following the intravenous administration of contrast to evaluate the major cervical vessels. Maximum intensity projection images were also obtained. A dose lowering technique was utilized adhering to the principles of ALARA. COMPARISON: Head CT 12/14/2021. FINDINGS: Head CTA: The major dural venous sinuses are patent. No significant stenosis or occlusion within the right MCA. The right A1 segment is absent likely on a developmental basis. The remaining bilateral ACAs are widely patent. Moderate multifocal narrowing of up to 60% within the proximal left MCA. There is a hypoplastic distal right vertebral artery demonstrating mild to moderate multifocal narrowing due to the calcified plaque. There is mild focal narrowing within the distal left vertebral artery due to the calcified plaque. There is a 5 mm segment of high-grade stenosis involving the proximal left RECYCLABLE MATERIALS DISTRIBUTOR. The right RECYCLABLE MATERIALS DISTRIBUTOR is widely patent. Calcified plaque within the bilateral carotid siphons resulting in mild diffuse narrowing of the left internal carotid artery and mild to moderate narrowing of the right internal carotid artery. The right internal carotid artery demonstrates up to 50% stenosis. No aneurysms identified. Near- complete opacification of the right maxillary sinus, ethmoid air cells, and right frontal sinus. This remains unchanged. Bilateral mastoid effusions right greater than left and opacification the right middle ear cavity persists. Neck CTA: Mild focal narrowing within the proximal right subclavian artery due to the calcified plaque. Calcified plaque within the normal caliber aortic arch. The bilateral common carotid and vertebral arteries are widely patent. The left internal carotid artery is widely patent. There is mild focal narrowing of approximately 30% within the distal right internal carotid artery best seen on image 321. Focal nodule within the left side of the vallecula measuring 9 mm. This is best seen image 240. IMPRESSION: 1. A 5 mm segment of high-grade stenosis involving the proximal left RECYCLABLE MATERIALS DISTRIBUTOR. 2. Multifocal areas of ewue-ii-iyaqknsp narrowing within the left MCA, bilateral distal vertebral arteries, distal right cervical internal carotid artery, bilateral intracranial internal carotid arteries. 3. No aneurysm identified. 4. The bilateral common carotid left internal carotid artery widely patent. 5. A 9 mm nodule left side of the vallecula. Direct visualization recommended for further evaluation. Medications Administered ER Medications Given: NSS 500ml bolus ECG Indication: syncope Rate (beats per minute): 68 Rhythm: normal sinus Findings: + PVC; no acute ischemic change Comparison ECG Date: no prior available Code Status & VTE Plan Code Status Full VTE Prophylaxis Plan VTE Prophylaxis will be ordered: Yes PG Care Time/CCT Total # of Minutes Spent Total Time Spent with Patient: Total time spent is greater than 50% in coordination of care (as documented) at patient's floor/unit and/or counseling patient: Coding Level of Care Code INT OBSERVATION CARE 50M LVL 2 Diagnoses Dizziness R42 Hx of CABG Z95.1 History of pulmonary embolism Z86.711 Hypothyroidism E03.9
[2021-12-16] MEDS ORDERED: ACETAMINOPHEN 325 MG TAB PO PRN (18:22)
[2021-12-16] MEDS ORDERED: CETIRIZINE HCL 10 MG TABLET PO PRN (18:48)
[2021-12-16] MEDS: RIVAROXABAN 20 MG TAB PO SCH (21:50)
[2021-12-17] MEDS: LEVOTHYROXINE SODIUM 75 MCG TABLET PO SCH (06:31)
[2021-12-17] MEDS: PRAVASTATIN SOD 40 MG TAB PO SCH (09:12)
[2021-12-17] MEDS: ARTIFICIAL TEARS OP SCH (09:20)
[2021-12-17] MEDS: ASPIRIN 81 MG ECTAB PO SCH (10:11)
--- NOTE | 2021-12-17 19:40 | Hospitalist Progress Note ---
Date of Service December 17, 2021 Assessment & Plan (1) Dizziness: Plan: - Maybe multifactorial -- normally on Norvasc 5 mg daily which he was advised to hold for a bit of time after his last hospital stay at another facility but never resumed it. He was having elevated pressures and this was resumed. Due to ongoing high pressures and headaches it was bumped to 5 mg BID just a couple days prior. Patient then had a head injury when a 2 x 4 leaning against a wall fell and hit him on the head which he reports some dizziness when that happened. 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; bilateral masoid effusions and paranasal sinus disease; moderate narrowing at 60% of proximal L MCA, hypoplastic distal R vertebral artery with mild/moderate multifocal narrowing due to plaque; mild focal narrowing within distal L vertebral artery due to plaque; 5 mm high grade stenosis of the [employer]; mild/moderate narrowing DIANE at 50% and mild narrowing of LICA -- As well this 9 mm nodule of the L side of the vallecula but unable to get good view due to the patient's tongue but evidence of post nasal drip - Patient did have bilateral carotid endarterectomies by a doctor at [facility]. No emergent need to correct this but could consider surgical evaluation. Patient is uncertain if he would want to do this again - PT/OT - recommendations for home (2) Hx of CABG: Plan: Continue clopidogrel, Xarelto, pravastatin (3) History of pulmonary embolism: Plan: Prior history of multiple PE/DVT. Continue Xarelto indefinitely (4) Hypothyroidism: Plan: TSH 2.375 Continue levothyroxine 75 mcg PO daily Plan: Monitor BP and symptoms overnight. Arrange for holter monitor. Could try meclizine if still having issues. Updated daughter at bedside. Suspect D/C tomorrow Admission and Anticipated Discharge Date Admission Date: December 16, 2021 Subjective No acute events overnight. Reports no dizziness today however just not quite back to his normal self. He participated in therapy and did well. He is sinus with PVCs on monitor. He denies CP or SOB. He is tolerating a diet and verbalizes no new complaints. Review of Systems Review of Systems: All systems reviewed & are unremarkable except as noted in Subjective Physical Exam Physical Exam: PHYSICAL EXAM General Appearance: WDWN in NAD who is A&O x 3 HEENT: Head is normocephalic/atraumatic; Hearing grossly intact with the assistance of hearing aids but L better than R; Mucous membranes moist; Attempted to visualize this nodule in the L vallecula but unable to get good vis ibility due to the patient's tongue; ear canals are clear with no cerumen; no bulging/erythema of the TMs bilateral; no signs of fluid behind TMs bilaterally Neck: Supple; Trachea midline; Neg JVD; Neg lymphadenopathy Heart: RRR with no M/G/R Lungs: CTA in all lung maya bilaterally; Respirations unlabored; Neg accessory muscle use Abdomen: Soft, non-tender, non-distended; Positive BS x 4 quadrants Extremities: Neg cyanosis or edema Neurological: Speech clear; Gross motor/sensory function intact; Neg focal neurologic deficits Psychiatric: Appropriate mood/affect Skin: Normal Color; Warm/Dry Results & Data Results & Data ([facility]) Vital Signs (Past 12 Hours) Vital Signs Temp Pulse Pulse Resp BP Pulse Ox 12/17/21 15:12 36.7 C 20 92 12/17/21 14:33 65 12/17/21 11:12 36.6 C 71 20 146/65 H 97 PG Care Time/CCT Total # of Minutes Spent Total Time Spent with Patient: Total time spent is greater than 50% in coordination of care (as documented) at patient's floor/unit and/or counseling patient: Coding Level of Care Code 56164 Subseq Obs Care Lvl 2 Diagnoses Dizziness R42 Hx of CABG Z95.1 History of pulmonary embolism Z86.711 Hypothyroidism E03.9
[2021-12-17] MEDS: RIVAROXABAN 20 MG TAB PO SCH (20:57)
[2021-12-18] MEDS: LEVOTHYROXINE SODIUM 75 MCG TABLET PO SCH (06:17)
[2021-12-18 07:39] LABS: Hematocrit (blood only) 43.1 % (42-52); Hemoglobin 14.8 g/dL (14.0-18.0); Mean Corpuscular Hemoglobin 31.4 pg (25-34); Mean Corpuscular Hgb Conc 34.3 g/dL (32-36); Mean Corpuscular Volume 91.3 fL (80-100); Mean Platelet Volume 10.6 fL (7.4-10.4); Platelet Count 331 K/uL (130-400); RDW Coefficient of Variation 13.8 % (11.5-14.5); RDW Standard Deviation 46.6 fL (36.4-46.3); Red Blood Count 4.72 M/uL (4.7-6.1); White Blood Count 9.27 K/uL (4.8-10.8)
[2021-12-18] MEDS: PRAVASTATIN SOD 40 MG TAB PO SCH (08:16)
[2021-12-18] MEDS: ARTIFICIAL TEARS OP SCH (08:17)
[2021-12-18] MEDS: ASPIRIN 81 MG ECTAB PO SCH (08:17)
[2021-12-18 08:21] LABS: Albumin Globulin Ratio 1.3 (0.9-2); Albumin Level 3.7 gm/dl (3.4-5.0); BUN Creatinine Ratio 15.2 (10-20); Bilirubin,Total 0.4 mg/dl (0.2-1.0); Calcium 9.4 mg/dl (8.5-10.1); Creatinine Clr Calc Pharmacy 43.4 ml/min; Est GFR (African American) 68.1 ml/min; Est GFR (Non-African American) 58.7 ml/min; Globulin 2.9 gm/dl (2.5-4.0); Potassium 4.1 mmol/L (3.5-5.1); Total Protein 6.6 gm/dl (6.0-8.3)
[2021-12-18] MEDS ORDERED: amLODIPine BESYLATE 5 MG TAB PO SCH (09:00)
--- NOTE | 2021-12-18 14:51 | Discharge Summary ---
Date of Service December 18, 2021 Admission HPI Per Admitting Provider Da Garduno is an 86 year old male who presents to the ER with dizziness. Difficult to patient to give a good history, daughter was no longer present in the ER when admitted. He reports dizziness whenever he gets up, resolves with sitting or laying for a while. Also has a room spinning sensation. He denies any full syncopal episodes. Per ER provider who took history from daughter who was at bedside - he had a syncopal event this morning. He recently restarted on his amlodipine at 5mg PO BID filled on 12/11. Previously this was discontinued at [facility] in July 2021 after an admission for DVT where he had a low blood pressure. He denies any history of vertigo. He thinks he last took amlodipine last night. Despite not taking amlodipine today he remains dizzy on standing in the ER and since he lives alone (although his daughter stays with him for a lot of the time) it was felt to be unsafe to discharge him home at this time. He was referred to medicine for admission and ongoing management of dizziness/syncope. Principal Diagnosis Dizziness; Possible Syncope Discharge Exam PHYSICAL EXAM General Appearance: WDWN in NAD who is A&O x 3 HEENT: Head is normocephalic/atraumatic; Hearing grossly intact with the assistance of hearing aids but L better than R; Mucous membranes moist; Attempted to visualize this nodule in the L vallecula but unable to get good visibility due to the patient's tongue; ear canals are clear with no cerumen; no bulging/erythema of the TMs bilateral; no signs of fluid behind TMs bilaterally; no nystagmus Neck: Supple; Trachea midline; Neg JVD; Neg lymphadenopathy Heart: RRR with no M/G/R Lungs: CTA in all lung maya bilaterally; Respirations unlabored; Neg accessory muscle use Abdomen: Soft, non-tender, non-distended; Positive BS x 4 quadrants Extremities: Neg cyanosis or edema Neurological: Speech clear; Gross motor/sensory function intact; Neg focal neurologic deficits Psychiatric: Appropriate mood/affect Skin: Normal Color; Warm/Dry Discharge Data Allergies Allergy/AdvReac Type Severity Reaction Status Date / Time rosuvastatin [From Crestor] AdvReac Intermediate cramps Verified 12/16/21 11:38 JENARO Inhibitors AdvReac Unknown PER PT'S Verified 12/16/21 11:38 DAUGHTER UNKNOWN SOME REQUIRED HOSPITALIZATION. acyclovir AdvReac Unknown PER PT'S Verified 12/16/21 11:38 DAUGHTER UNKNOWN SOME REQUIRED HOSPITALIZATION. amoxicillin AdvReac Unknown PER PT'S Verified 12/16/21 11:38 DAUGHTER UNKNOWN SOME REQUIRED HOSPITALIZATION. atorvastatin AdvReac Unknown PER PT'S Verified 12/16/21 11:38 DAUGHTER UNKNOWN SOME REQUIRED HOSPITALIZATION. benzonatate AdvReac Unknown PER PT'S Verified 12/16/21 11:38 [From Carrillo Bell] DAUGHTER UNKNOWN SOME REQUIRED HOSPITALIZATION. Beta-Adrenergic Agents AdvReac Unknown PER PT'S Verified 12/16/21 11:38 DAUGHTER UNKNOWN SOME REQUIRED HOSPITALIZATION. cefaclor AdvReac Unknown PER PT'S Verified 12/16/21 11:38 DAUGHTER UNKNOWN SOME REQUIRED HOSPITALIZATION. cephalexin AdvReac Unknown PER PT'S Verified 12/16/21 11:38 DAUGHTER UNKNOWN SOME REQUIRED HOSPITALIZATION. ciprofloxacin AdvReac Unknown PER PT'S Verified 12/16/21 11:38 DAUGHTER UNKNOWN SOME REQUIRED HOSPITALIZATION. clarithromycin AdvReac Unknown PER PT'S Verified 12/16/21 11:38 DAUGHTER UNKNOWN SOME REQUIRED HOSPITALIZATION. lisinopril AdvReac Unknown PER PT'S Verified 12/16/21 11:38 DAUGHTER UNKNOWN SOME REQUIRED HOSPITALIZATION. metoprolol [From Toprol XL] AdvReac Unknown PER PT'S Verified 12/16/21 11:38 DAUGHTER UNKNOWN SOME REQUIRED HOSPITALIZATION. morphine AdvReac Unknown PER PT'S Verified 12/16/21 11:38 DAUGHTER UNKNOWN SOME REQUIRED HOSPITALIZATION. phenylpropanolamine AdvReac Unknown PER PT'S Verified 12/16/21 11:38 DAUGHTER UNKNOWN SOME REQUIRED HOSPITALIZATION. promethazine [From Phenergan] AdvReac Unknown PER PT'S Verified 12/16/21 11:38 DAUGHTER UNKNOWN SOME REQUIRED HOSPITALIZATION. propranolol AdvReac Unknown PER PT'S Verified 12/16/21 11:38 DAUGHTER UNKNOWN SOME REQUIRED HOSPITALIZATION. simvastatin AdvReac Unknown PER PT'S Verified 12/16/21 11:38 DAUGHTER UNKNOWN SOME REQUIRED HOSPITALIZATION. Sulfa (Sulfonamide AdvReac Unknown PER PT'S Verified 12/16/21 11:38 Antibiotics) DAUGHTER UNKNOWN SOME REQUIRED HOSPITALIZATION. theophylline AdvReac Unknown PER PT'S Verified 12/16/21 11:38 DAUGHTER UNKNOWN SOME REQUIRED HOSPITALIZATION. tramadol AdvReac Unknown PER PT'S Verified 12/16/21 11:38 DAUGHTER UNKNOWN SOME REQUIRED HOSPITALIZATION. Consultations 12/16/21 15:53 ED Decision to Admit Stat Ordered Studies Chest X-Ray 12/16/21 11:13 XR chest 1V portable HISTORY: cough, syncope COMPARISON: None. FINDINGS: The cardiac silhouette is borderline enlarged. There are poststernotomy changes. There are old, healed left-sided rib fractures. A few bibasilar linear densities favor subsegmental atelectasis are scarring. No focal lung consolidations to suggest pneumonia. No evidence for pulmonary edema. There is mild emphysema. There is a 5.4 cm lobular density at the right lung base. IMPRESSION: 1. No focal lung consolidations to suggest pneumonia. 2. Emphysema. 3. Mild cardiomegaly. 4. A 5.4 cm lobular density the right lung base. Although nonspecific, this favors a fat-containing Bochdalek hernia. Follow-up nonemergent chest CT can be used for confirmation or comparison to prior studies. ACT 112: Negative or not required by law. Electronically signed by: Parviz Alcantara M.D. 12/16/2021 11:[address] 12/16/21 11:13 CT OF THE HEAD WITHOUT CONTRAST CLINICAL HISTORY: dizzy, headache, blurred vision COMPARISON STUDY: Head CT December 14, 2021. CT DOSE: 1178.61 mGy.cm TECHNIQUE: Helical axial images of the head were obtained without IV contrast. Automated exposure control was utilized for the study. A dose lowering technique was utilized adhering to the principles of ALARA. FINDINGS: No acute intracranial hemorrhage, midline shift or mass effect is present. Left basal ganglia/periventricular infarcts are noted. There is associated mild dilatation of the left lateral ventricle. Basal cisterns are patent. There are no extra axial collections. There are no findings to suggest acute dural sinus thrombosis or acute territorial infarct. Right mastoid air cells are opacified. Left mastoid air cells are partially opacified. Right maxillary sinus is nearly entirely opacified. Extensive ethmoid and right femur sinus mucosal thickening is present. Mild left maxillary sinus mucosal thickening. These findings are unchanged. IMPRESSION: 1. No acute intracranial findings. 2. 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 No change in appearance of the brain. 3. Bilateral mastoid effusions and paranasal sinus disease, as above. ACT 112: Negative or not required by law. Electronically signed by: Jhon Elizondo M.D. 12/16/2021 1:37 PM Head CTA 12/16/21 11:13 HEAD & NECK CTA HISTORY: dizzy, headache, blurred vision TECHNIQUE: Multiaxial CT images of the head were performed following the intravenous administration of contrast to evaluate the major cerebral vessels. Multiaxial CT images of the neck were also performed following the intravenous administration of contrast to evaluate the major cervical vessels. Maximum intensity projection images were also obtained. A dose lowering technique was utilized adhering to the principles of ALARA. COMPARISON: Head CT 12/14/2021. FINDINGS: Head CTA: The major dural venous sinuses are patent. No significant stenosis or occlusion within the right MCA. The right A1 segment is absent likely on a developmental basis. The remaining bilateral ACAs are widely patent. Moderate multifocal narrowing of up to 60% within the proximal left MCA. There is a hypoplastic distal right vertebral artery demonstrating mild to moderate multifocal narrowing due to the calcified plaque. There is mild focal narrowing within the distal left vertebral artery due to the calcified plaque. There is a 5 mm segment of high-grade stenosis involving the proximal left FLATWORK FINISHER. The right FLATWORK FINISHER is widely patent. Calcified plaque within the bilateral carotid siphons resulting in mild diffuse narrowing of the left internal carotid artery and mild to moderate narrowing of the right internal carotid artery. The right internal carotid artery demonstrates up to 50% stenosis. No aneurysms identified. Near- complete opacification of the right maxillary sinus, ethmoid air cells, and right frontal sinus. This remains unchanged. Bilateral mastoid effusions right greater than left and opacification the right middle ear cavity persists. Neck CTA: Mild focal narrowing within the proximal right subclavian artery due to the calcified plaque. Calcified plaque within the normal caliber aortic arch. The bilateral common carotid and vertebral arteries are widely patent. The left internal carotid artery is widely patent. There is mild focal narrowing of approximately 30% within the distal right internal carotid artery best seen on image 321. Focal nodule within the left side of the vallecula measuring 9 mm. This is best seen image 240. IMPRESSION: 1. A 5 mm segment of high-grade stenosis involving the proximal left FLATWORK FINISHER. 2. Multifocal areas of [id number] narrowing within the left MCA, bilateral distal vertebral arteries, distal right cervical internal carotid artery, bilateral intracranial internal carotid arteries. 3. No aneurysm identified. 4. The bilateral common carotid left internal carotid artery widely patent. 5. A 9 mm nodule left side of the vallecula. Direct visualization recommended for further evaluation. ACT 112: Negative or not required by law. Electronically signed by: Parviz Alcantara M.D. 12/16/2021 1:51 PM Neck CTA 12/16/21 11:13 HEAD & NECK CTA HISTORY: dizzy, headache, blurred vision TECHNIQUE: Multiaxial CT images of the head were performed following the intravenous administration of contrast to evaluate the major cerebral vessels. Multiaxial CT images of the neck were also performed following the intravenous administration of contrast to evaluate the major cervical vessels. Maximum intensity projection images were also obtained. A dose lowering technique was utilized adhering to the principles of ALARA. COMPARISON: Head CT 12/14/2021. FINDINGS: Head CTA: The major dural venous sinuses are patent. No significant stenosis or occlusion within the right MCA. The right A1 segment is absent likely on a developmental basis. The remaining bilateral ACAs are widely patent. Moderate multifocal narrowing of up to 60% within the proximal left MCA. There is a hypoplastic distal right vertebral artery demonstrating mild to moderate multifocal narrowing due to the calcified plaque. There is mild focal narrowing within the distal left vertebral artery due to the calcified plaque. There is a 5 mm segment of high-grade stenosis involving the proximal left FLATWORK FINISHER. The right FLATWORK FINISHER is widely patent. Calcified plaque within the bilateral carotid siphons resulting in mild diffuse narrowing of the left internal carotid artery and mild to moderate narrowing of the right internal carotid artery. The right internal carotid artery demonstrates up to 50% stenosis. No aneurysms identified. Near- complete opacification of the right maxillary sinus, ethmoid air cells, and right frontal sinus. This remains unchanged. Bilateral mastoid effusions right greater than left and opacification the right middle ear cavity persists. Neck CTA: Mild focal narrowing within the proximal right subclavian artery due to the calcified plaque. Calcified plaque within the normal caliber aortic arch. The bilateral common carotid and vertebral arteries are widely patent. The left internal carotid artery is widely patent. There is mild focal narrowing of approximately 30% within the distal right internal carotid artery best seen on image 321. Focal nodule within the left side of the vallecula measuring 9 mm. This is best seen image 240. IMPRESSION: 1. A 5 mm segment of high-grade stenosis involving the proximal left FLATWORK FINISHER. 2. Multifocal areas of [id number] narrowing within the left MCA, bilateral distal vertebral arteries, distal right cervical internal carotid artery, bilateral intracranial internal carotid arteries. 3. No aneurysm identified. 4. The bilateral common carotid left internal carotid artery widely patent. 5. A 9 mm nodule left side of the vallecula. Direct visualization recommended for further evaluation. ACT 112: Negative or not required by law. Electronically signed by: Parviz Alcantara M.D. 12/16/2021 1:51 PM Hospital Course (1) Dizziness: - Maybe multifactorial -- normally on Norvasc 5 mg daily which he was advised to hold for a bit of time after his last hospital stay at another facility but never resumed it. He was having elevated pressures and this was resumed. Due to ongoing high pressures and headaches it was bumped to 5 mg BID just a couple days prior. Patient then had a head injury when a 2 x 4 leaning against a wall fell and hit him on the head which he reports some dizziness when that happened. He has has chronic sinus issus and reports some worsening of PND which could be contributing to equilibrium - NSR with PVCs on monitor and uncertain if true syncopal event but cannot rule out - should have holter monitor on D/C and will arrange and send Rx to nurse n avigator - Will resume Norvasc 5 mg daily - BP largely acceptable and may benefit from keeping pressures around 140 systolic -- of course a fine balance of BP control without overcorrection and stroke reduction is important given his known plaques and previous history of CVAs - Head CT and Head/Neck CTA - no acute stroke; evidence of old L basal ganglia/periventricular infarcts; bilateral mastoid effusions and paranasal sinus disease; moderate narrowing at 60% of proximal L MCA, hypoplastic distal R vertebral artery with mild/moderate multifocal narrowing due to plaque; mild focal narrowing within distal L vertebral artery due to plaque; 5 mm high grade stenosis of the FLATWORK FINISHER; mild/moderate narrowing DIANE at 50% and mild narrowing of LICA -- As well this 9 mm nodule of the L side of the vallecula but unable to get good view due to the patient's tongue but evidence of post nasal drip -- could have ENT eval for better view - Patient did have bilateral carotid endarterectomies by a doctor at [facility]. No emergent need to correct this but could consider surgical evaluation. 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 Continue Xarelto indefinitely (4) Hypothyroidism: TSH 2.375 Continue levothyroxine 75 mcg PO daily Arrange for holter monitor No further dizziness while inpatient Change ASA to Plavix Consider Vascular evaluation; Consider ENT evaluation Total Time Total Time Spent Total Time Spent (In Minutes): Spent greater than 30 minutes preparing patient for discharge. This includes discussion with patient/family, assessment, intervention, medication reconciliation, and coordination of care. Discharge Plan Discharge Items Patient Disposition: Home - Self-Care Reason For Visit: DIZZINESS Discharge Diagnosis: Dizziness Activity: Resume your previous activity Non-emergency contact: Primary Care Provider Call non-emergency contact if: you have any medication questions, your symptoms worsen and you have a fever Follow-up/Referrals: Boaz Parikh DO [Primary Care Provider] - 12/26/21 10:00 am Diet: Heart Healthy Addtl Attending Provider Instructions: Dizziness: - This may be a combination of a couple things. Unfortunately there is no clear cut answer to explain what was the main cause. Thankfully, while you were here you have had no further dizziness which is good. You also did well with therapy. If it does make you feel comfortable, using your walker at home for a bit more stability is always a nice thing. - You did sustain a head injury prior to this starting and a but of a post- concussive component could be playing a role. The duff to this is getting adequate rest and limiting anything that strains the eyes like screens (phones,tv) or trying to read books in dim light. - As well, if the recent increase in your blood pressure medication this can definitely play a role. You do intermittently have higher blood pressures so we will continue the Norvasc 5 mg daily. You can take this at night if that is what you normally do. -- YOU HAD A DOSE TODAY SO IF YOU WANT TO TAKE THIS AT NIGHT DO NOT TAKE UNTIL 3/3 IN THE EVENING - If you can keep a blood pressure log to show your family doctor is definitely beneficial - Of course making sure to not have a high blood pressure is important to prevent stroke. However if it is around 140 as the top number that may be acceptable for the time being to prevent dizziness - As well, on imaging there is signs you have chronic issues with sinus congestion. When these areas get congested it can mess with your balance and dizziness. Recommend to continue your allergy medication and keep hydrated. - Thankfully, while on the heart monitor we did not find any irregular heart rhythms. But would like to arrange a holter (cardiac) monitor to be delivered to your house to just make sure no heart rhythm could explain this. - As well, there was no sign of a new stroke on your head images. We can see you had an old small one in the past but nothing new to explain your symptoms. - However, you were found to have plaque (cholesterol build-up) in some of the blood vessels of the brain. And some plaque buildup in the internal carotid arteries in the neck. We did discuss with one of our neurologist who recommend changing the Aspirin over to Plavix to make sure we try and get a bit better control with these plaques. A new prescription was sent to your pharmacy. It may be beneficial to periodically have repeat ultrasounds or scans to keep an eye on the blood vessels. Most of the time, the brain vessels dont get operated on. But you did have surgery on your neck vessels before and you can follow-up with a vascular surgeon to see if any future surgeries should be completed (if you want to have a surgery) Pending Studies at Discharge: No Stand-Alone Forms: My [facility] [employer], Smoking Cessation Medications and DC Order Prescriptions: New clopidogrel [Plavix] 75 mg tablet 75 mg PO DAILY 30 Days Qty: 30 RF: 0 Continued levothyroxine 50 mcg tablet 75 mcg PO DAILY Qty: 135 RF: 3 azelastine 137 mcg (0.1 %) aerosol,spray 2 spray intranasal BID Qty: 30 RF: 2 pravastatin 80 mg tablet 80 mg PO DAILY Qty: 90 RF: 3 A-C-E-zinc ox-cupric ox-lutein 1 tab PO DAILY RF: 0 dextran 70-hypromellose 0.1-0.3 % drops 1 drops OP DAILY RF: 0 nitroglycerin 0.4 mg tablet, sublingual 0.4 mg SL .COMPLEX PRN (Reason: chest pain) RF: 0 cetirizine 10 mg capsule 10 mg PO HS PRN (Reason: allergy symptoms) RF: 0 Xarelto 20 mg tablet 20 mg PO QPM RF: 0 Changed amlodipine [Norvasc] 5 mg tablet 5 mg PO DAILY Qty: 60 RF: 2 Discontinued aspirin 81 mg tablet,delayed release (DR/EC) 81 mg PO DAILY Qty: 150 RF: 0 Discharge Orders: Discharge Order (Routine); Ordered 12/18/21 Ordered By: Anel Rocha Admission Data Admit Date/Time: 12/16/21 17:08 Attending Provider: Charles Greenwood Admit Provider: Rick Tam Primary Care Provider: Boaz Parikh Other Providers: Rick Tam Other Interventions: Discharge Summary Assessment (RN) Last Done: 12/18/21 14:00 Coding Level of Care Code 71567 OBS Care - Discharge Diagnoses Dizziness R42 Hx of CABG Z95.1 History of pulmonary embolism Z86.711 Hypothyroidism E03.9
== END 2021-12-18 14:48 | disposition home or self-care (01) ==
LOC: EDINP 10:36 → ED 10:36 → SUATTDRO 17:08 → 2W 18:20

== ENCOUNTER 2023-05-31 09:22 | Observation (INO) ==
[2023-05-31] MEDS ORDERED: ALBUT/IPRATROP 3MG/0.5MG NEB 3 ML VIAL NEB ONE (09:37)
--- NOTE | 2023-05-31 09:42 | Emergency Department Note ---
Impression & Plan COPD with acute exacerbation, Hypoxia ED Provider Note Name: JEANETTE CHEN Age: 88 Sex: M Arrives Via: Walk-In Informant: Patient, daughter ED Provider: Donte Diaz MD Chief Complaint: Shortness of breath Impression: As per impressions above Medical Decision Making: Pleasant 88-year-old gentleman with worsening shortness of breath over the last few weeks especially with exertion. He has tried rounds of antibiotics and steroids without improvement. He arrives due to worsening weakness fatigue and shortness of breath. He is no longer able to do his typical daily activities. On examination he is not significantly distressed though is not moving much air on lung exam. He is given an hour-long nebulizer and is breathing much better. Chest x-ray is unremarkable. Labs are unremarkable. He was ambulated around the halls and his sats dropped into the mid 80s. At this point I think hospitalization would be reasonable to try and further elucidate what is going on. He was given some IV steroids along with a dose of IV antibiotics. He is not septic or bacteremic no indication of need for blood cultures lactic acid at this time. No history of DVT or PE and it seems unlikely that that is the cause given his other likely causes. Furthermore patient does take Xarelto. Prior Medical Record and Triage/Nursing Notes reviewed by Me External chart reviewed by me including outpatient records. Differentials:Pneumonia, pneumothorax, COPD, CHF, infections, cardiac ischemia, pulmonary embolism, musculoskeletal, gastrointestinal, as well as other pathologies. Vital Signs: reviewed and remarkable for no significant abnormalities Interventions: DuoNeb 1 hour nebulizer, Solu-Medrol IV, Doxy IV Labs:Reviewed and remarkable for no significant abnormalities Imagin view chest x-ray as per my interpretation reveals no infiltrate, effusion or other concerning finding. EKG:As per my interpretation. Indication shortness of breath. Normal sinus rhythm at 71 bpm no ectopy no ischemia. QT C of 445. When compared to EKG of December 16, 2021 there is no significant change. Cardiac/Tele Monitoring: Cardiac Monitoring: An Order was placed for continuous cardiac monitoring. The monitor shows a rate of 70 with a normal sinus rhythm. Consults:Tyrese hospitalist Plan: Disposition:Hospitalization. Condition: Good History of Present Illness:88-year-old male shows up for evaluation of shortness of breath. Patient states he began having worsening shortness of breath over the last 2 weeks. He has been on steroids and antibiotics without improvement. He states he cannot even ambulate around the house now. Patient is also having some generalized weakness but denies any fevers, chills, chest pain, back pain, abdominal pain. Yesterday he was feeling very nauseous and v omited several times over the last few days. No current nausea or vomiting. Denies any urinary or bowel symptoms. Denies any leg swelling or calf pain currently. Past History:See Below Home Medications:See Below Allergies:See Below Vitals:Blood Pressure: 147/82, Pulse 76, RR 22, T 36.5C, O2 97% on RA Physical Exam: GENERAL: Patient is tired appearing and in minimal distress. NECK: No masses appreciated, nomeningismus, trachea is midline. RESPIRATORY: Prolonged expiratory phase without wheezing. Patient mildly dyspneic/tachypneic. No rhonchi CARDIOVASCULAR: Regular rate and rhythm.No murmurs, rubs, gallops appreciated. GASTROINTESTINAL: Abdomen soft, non-tender, no peritonitis. BACK: No midline tenderness, no CVA tenderness EXTREMITIES: Normal motion all extremities, no cyanosis, no edema. NEUROLOGIC: Alert and oriented, no focal neurologic deficit SKIN: No rash, no jaundice, no diaphoresis. PSYCH: Appropriate GCS: 15 ED Course: Times/Reassessments: Patient is unable to ambulate without becoming short of breath and hypoxic. He is agreeable to hospitalization Donte Diaz MD Past Med/Surg History Medical History (Updated 05/31/23 @ 14:00 by Andre Esqueda PA-C) Acute dyspnea Allergic rhinitis Asplenia Benign essential hypertension CAD (coronary artery disease) Chronic cough H/O primary malignant neoplasm of urinary bladder History of pulmonary embolism Hyperlipidemia Hypothyroidism Lumbar radiculopathy Peripheral neuropathy Primary hypercoagulable state Pulmonary embolism Stroke Surgical History H/O splenectomy History of bladder surgery Hx of CABG S/P appendectomy S/P carotid endarterectomy S/P knee replacement Family History Mother Heart disease Hypertension Brother , Bladder Heart disease Diabetes Hypertension Cancer Myocardial infarction Father Hypertension Son No problems noted. Sister Hypertension Denies family history of Ovarian cancer Prostate cancer Breast cancer Colorectal cancer Social History Smoking Status: Never smoker Tobacco Type: Pipe Age Started Using Tobacco: 15; Age Quit Using Tobacco: 64; Second Hand Exposure: Yes (Father smoked); Do You Dip or Chew Tobacco: No; Hx Alcohol Use: No Hx Substance Use: No Preferred Language: Turkmen Communication Ability: Effective Visual Impairment: Limited Hearing Ability: Use of Hearing Aid Acute Care Physician Required: No Beliefs That Will Affect Care: None marital status: Current Living Situation: Family Current Living Situation Comment: lives with son, daughter lives close by current occupational status: retired current occupation: [employer] How many Children do You have: 8 How many Children do You have Comment: Six living and 2 Feels Safe at Home: Yes Childhood Exposure to Second-Hand Smoke: Yes (Father smoked) Diet: regular Diet Comment: Regular diet caffeine: Yes (coffee) during the past year weight has: remained stable Dental Care, Regularly: No Physical Activity Frequency: Daily Physical Activity Frequency 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 acyclovir AdvReac Unknown PER PT'S Verified 05/31/23 12:25 DAUGHTER UNKNOWN SOME REQUIRED HOSPITALIZATION. amoxicillin AdvReac Unknown PER PT'S Verified 05/31/23 12:25 DAUGHTER UNKNOWN SOME REQUIRED HOSPITALIZATION. atorvastatin AdvReac Unknown PER PT'S Verified 05/31/23 12:25 DAUGHTER UNKNOWN SOME REQUIRED HOSPITALIZATION. benzonatate AdvReac Unknown PER PT'S Verified 05/31/23 12:25 [From Carrillo Bell] DAUGHTER UNKNOWN SOME REQUIRED HOSPITALIZATION. Beta-Adrenergic Agents AdvReac Unknown PER PT'S Verified 05/31/23 12:25 DAUGHTER UNKNOWN SOME REQUIRED HOSPITALIZATION. cefaclor AdvReac Unknown PER PT'S Verified 05/31/23 12:25 DAUGHTER UNKNOWN SOME REQUIRED HOSPITALIZATION. cephalexin AdvReac Unknown PER PT'S Verified 05/31/23 12:25 DAUGHTER UNKNOWN SOME REQUIRED HOSPITALIZATION. ciprofloxacin AdvReac Unknown PER PT'S Verified 05/31/23 12:25 DAUGHTER UNKNOWN SOME REQUIRED HOSPITALIZATION. clarithromycin AdvReac Unknown PER PT'S Verified 05/31/23 12:25 DAUGHTER UNKNOWN SOME REQUIRED HOSPITALIZATION. lisinopril AdvReac Unknown PER PT'S Verified 05/31/23 12:25 DAUGHTER UNKNOWN SOME REQUIRED HOSPITALIZATION. metoprolol [From Toprol XL] AdvReac Unknown PER PT'S Verified 05/31/23 12:25 DAUGHTER UNKNOWN SOME REQUIRED HOSPITALIZATION. morphine AdvReac Unknown PER PT'S Verified 05/31/23 12:25 DAUGHTER UNKNOWN SOME REQUIRED HOSPITALIZATION. phenylpropanolamine AdvReac Unknown PER PT'S Verified 05/31/23 12:25 DAUGHTER UNKNOWN SOME REQUIRED HOSPITALIZATION. promethazine [From Phenergan] AdvReac Unknown PER PT'S Verified 05/31/23 12:25 DAUGHTER UNKNOWN SOME REQUIRED HOSPITALIZATION. propranolol AdvReac Unknown PER PT'S Verified 05/31/23 12:25 DAUGHTER UNKNOWN SOME REQUIRED HOSPITALIZATION. simvastatin AdvReac Unknown PER PT'S Verified 05/31/23 12:25 DAUGHTER UNKNOWN SOME REQUIRED HOSPITALIZATION. Sulfa (Sulfonamide AdvReac Unknown PER PT'S Verified 05/31/23 12:25 Antibiotics) DAUGHTER UNKNOWN SOME REQUIRED HOSPITALIZATION. theophylline AdvReac Unknown PER PT'S Verified 05/31/23 12:25 DAUGHTER UNKNOWN SOME REQUIRED HOSPITALIZATION. tramadol AdvReac Unknown PER PT'S Verified 05/31/23 12:25 DAUGHTER UNKNOWN SOME REQUIRED HOSPITALIZATION. Home Meds Home Medications Medication Instructions Recorded Confirmed cetirizine 10 mg capsule 10 mg PO HS PRN allergy symptoms 06/12/20 05/31/23 azelastine 137 mcg (0.1 %) nasal 2 spray intranasal DAILY 04/20/23 05/31/23 spray aerosol vit A 7,160 unit-vit C 113 mg-vit 1 tab PO DAILY 04/20/23 05/31/23 [id number]-lutein 0.5 mg tablet (Ocular Vitamins) rivaroxaban 20 mg tablet (Xarelto) 20 mg PO HS 05/31/23 05/31/23 Previous Rx's Medication Instructions Recorded nitroglycerin 0.4 mg sublingual 0.4 mg sublingual .COMPLEX PRN 10/24/22 tablet chest pain #25 tabs amlodipine 5 mg tablet (Norvasc) 5 mg PO DAILY #30 tabs 02/21/23 clopidogrel 75 mg tablet (Plavix) 75 mg PO DAILY 90 days #30 tabs 02/21/23 levothyroxine 100 mcg tablet 100 mcg PO DAILY #30 tabs 02/21/23 (Synthroid) Results & Data (ED) Vital Signs Vital Signs - 24 hr 05/31/23 09:26 05/31/23 09:50 05/31/23 09:57 Temperature 36.5 C Temperature Source Oral Pulse Rate 76 69 Pulse Rate [Right Finger] 64 Pulse Rate from SpO2 Sensor Pulse Rhythm [Right Finger] Pulse Strength [Right Finger] Respiratory Rate 22 18 Respiratory Effort / Characteristics Non-Labored Spontaneous Respiratory Depth Respiratory Pattern Blood Pressure 147/82 H Blood Pressure [Right Arm] Blood Pressure Mean 103 Blood Pressure Mean [Right Arm] Blood Pressure Position Sitting Pulse Oximetry 97 96 Oxygen Delivery Method Room Air Room Air Sepsis Recent Fever Within 48 Hours No Sepsis New/Unexplained Change in Mental Status No Sepsis Action Taken by Nursing No Action Required 05/31/23 11:23 05/31/23 11:25 05/31/23 09:45 Temperature Temperature Source Pulse Rate 68 Pulse Rate [Right Finger] 87 Pulse Rate from SpO2 Sensor 69 Pulse Rhythm [Right Finger] Regular Pulse Strength [Right Finger] Normal Respiratory Rate 36 H 24 21 Respiratory Effort / Characteristics Labored Respiratory Depth Shallow Normal Respiratory Pattern Tachypnea Regular Blood Pressure Blood Pressure [Right Arm] 144/72 H Blood Pressure Mean Blood Pressure Mean [Right Arm] 96 Blood Pressure Position Pulse Oximetry 87 L 95 95 Oxygen Delivery Method Room Air Room Air Sepsis Recent Fever Within 48 Hours Sepsis New/Unexplained Change in Mental Status Sepsis Action Taken by Nursing 05/31/23 10:00 05/31/23 10:00 05/31/23 10:30 Temperature Temperature Source Pulse Rate 64 Pulse Rate [Right Finger] Pulse Rate from SpO2 Sensor 64 Pulse Rhythm [Right Finger] Pulse Strength [Right Finger] Respiratory Rate 31 H Respiratory Effort / Characteristics Respiratory Depth Respiratory Pattern Blood Pressure 148/73 H 153/74 H Blood Pressure [Right Arm] Blood Pressure Mean 90 96 Blood Pressure Mean [Right Arm] Blood Pressure Position Pulse Oximetry 100 Oxygen Delivery Method Sepsis Recent Fever Within 48 Hours Sepsis New/Unexplained Change in Mental Status Sepsis Action Taken by Nursing 05/31/23 10:30 05/31/23 11:00 05/31/23 11:00 Temperature Temperature Source Pulse Rate 73 67 Pulse Rate [Right Finger] Pulse Rate from SpO2 Sensor 73 63 Pulse Rhythm [Right Finger] Pulse Strength [Right Finger] Respiratory Rate 19 19 Respiratory Effort / Characteristics Respiratory Depth Respiratory Pattern Blood Pressure 150/66 H Blood Pressure [Right Arm] Blood Pressure Mean 93 Blood Pressure Mean [Right Arm] Blood Pressure Position Pulse Oximetry 100 100 Oxygen Delivery Method Sepsis Recent Fever Within 48 Hours Sepsis New/Unexplained Change in Mental Status Sepsis Action Taken by Nursing 05/31/23 11:30 05/31/23 11:30 05/31/23 12:00 Temperature Temperature Source Pulse Rate 68 Pulse Rate [Right Finger] Pulse Rate from SpO2 Sensor 64 Pulse Rhythm [Right Finger] Pulse Strength [Right Finger] Respiratory Rate 17 Respiratory Effort / Characteristics Respiratory Depth Respiratory Pattern Blood Pressure 152/88 H 144/72 H Blood Pressure [Right Arm] Blood Pressure Mean 112 90 Blood Pressure Mean [Right Arm] Blood Pressure Position Pulse Oximetry 94 Oxygen Delivery Method Sepsis Recent Fever Within 48 Hours Sepsis New/Unexplained Change in Mental Status Sepsis Action Taken by Nursing 05/31/23 12:00 05/31/23 12:30 05/31/23 12:30 Temperature Temperature Source Pulse Rate 74 90 Pulse Rate [Right Finger] Pulse Rate from SpO2 Sensor 71 87 Pulse Rhythm [Right Finger] Pulse Strength [Right Finger] Respiratory Rate 20 15 Respiratory Effort / Characteristics Respiratory Depth Respiratory Pattern Blood Pressure 122/70 Blood Pressure [Right Arm] Blood Pressure Mean 95 Blood Pressure Mean [Right Arm] Blood Pressure Position Pulse Oximetry 93 96 Oxygen Delivery Method Sepsis Recent Fever Within 48 Hours Sepsis New/Unexplained Change in Mental Status Sepsis Action Taken by Nursing 05/31/23 13:00 05/31/23 13:26 05/31/23 13:26 Temperature Temperature Source Pulse Rate 80 78 Pulse Rate [Right Finger] Pulse Rate from SpO2 Sensor 75 Pulse Rhythm [Right Finger] Pulse Strength [Right Finger] Respiratory Rate 24 16 Respiratory Effort / Characteristics Respiratory Depth Respiratory Pattern Blood Pressure 179/90 H Blood Pressure [Right Arm] Blood Pressure Mean 141 Blood Pressure Mean [Right Arm] Blood Pressure Position Pulse Oximetry 92 Oxygen Delivery Method Sepsis Recent Fever Within 48 Hours Sepsis New/Unexplained Change in Mental Status Sepsis Action Taken by Nursing 05/31/23 13:30 05/31/23 13:30 Temperature Temperature Source Pulse Rate 78 Pulse Rate [Right Finger] Pulse Rate from SpO2 Sensor 78 Pulse Rhythm [Right Finger] Pulse Strength [Right Finger] Respiratory Rate 26 H Respiratory Effort / Characteristics Respiratory Depth Respiratory Pattern Blood Pressure 183/77 H Blood Pressure [Right Arm] Blood Pressure Mean 104 Blood Pressure Mean [Right Arm] Blood Pressure Position Pulse Oximetry 93 Oxygen Delivery Method Sepsis Recent Fever Within 48 Hours Sepsis New/Unexplained Change in Mental Status Sepsis Action Taken by Nursing Laboratory Data 05/31/23 09:53 05/31/23 09:53 Lab Results 05/31/23 05/31/23 05/31/23 Range/Units 09:45 09:53 09:53 WBC 8.36 (4.8-10.8) K/ul RBC 4.49 L (4.70-6.10) M/uL Hgb 13.9 L (14.0-18.0) g/dl Hct 40.4 L (42.0-52.0) % MCV 90.0 (80.0-100.0) fL MCH 31.0 (25.0-34.0) pg MCHC 34.4 (32.0-36.0) g/dL RDW Std Deviation 49.7 H (36.4-46.3) fL RDW Coeff of Ashley 15.1 H (11.5-14.5) % Plt Count 351 (130-400) K/uL MPV 10.1 (9.4-12.4) fL Immature Gran % (Auto) 0.2 % Neut % (Auto) 45.5 % Lymph % (Auto) 31.6 % [place] % (Auto) 14.6 % Eos % (Auto) 6.5 % Baso % (Auto) 1.6 % Neut # (Auto) 3.81 (1.40-6.50) K/uL Lymph # (Auto) 2.64 (1.2-3.4) K/uL [place] # (Auto) 1.22 H (0.11-0.59) K/uL Eos # (Auto) 0.54 H (0-0.50) K/uL Baso # (Auto) 0.13 (0-0.2) K/uL Immature Gran # (Auto) 0.02 (0.01-0.20) K/uL VBG pH (7.36-7.41) VBG pCO2 (38-50) mmHg VBG pO2 mmHg VBG HCO3 mmol/L VBG O2 Saturation % VBG Base Excess mEq/L Sodium 141 (136-145) mmol/L Potassium 3.9 (3.5-5.1) mmol/L Chloride 106 (98-107) mmol/L Carbon Dioxide 29 (21-32) mmol/L Anion Gap 6 (3-11) BUN 13 (6-23) mg/dl Creatinine 1.03 (0.6-1.4) mg/dl Est Cr Clr Drug Dosing 46.2 ml/min Est GFR ( Amer) 74.3 ml/min Est GFR (Non-Af Amer) 64.1 ml/min BUN/Creatinine Ratio 12.6 (10-20) Glucose 67 L (70-99(Fasting)) mg/dl Calcium 9.2 (8.6-10.3) mg/dl Magnesium 2.1 (1.7-2.4) mg/dl Total Bilirubin 0.5 (0.2-1.0) mg/dl Direct Bilirubin 0.1 (0-0.2) mg/dl AST 17 (13-39) U/L ALT 11 (7-52) U/L Alkaline Phosphatase 84 (34-104) U/L Troponin I High Sens 6.4 (0-20) pg/ml Total Protein 7.1 (6.0-8.3) gm/dl Albumin 4.0 (3.4-5.0) gm/dl Adenovirus (PCR) Not Detected (NotDetected) B. pertussis DNA (PCR) Not Detected (NotDetected) B.parapertussis DNA PCR Not Detected (NotDetected) C. pneumoniae DNA (PCR) Not Detected (NotDetected) Coronavirus OC43 (PCR) Not Detected (NotDetected) Coronavirus HKU1 (PCR) Not Detected (NotDetected) Coronavirus 229E (PCR) Not Detected (NotDetected) SARS-CoV-2 (PCR) Not Detected (NotDetected) Coronavirus NL63 (PCR) Not Detected (NotDetected) Human Metapneumovir PCR Not Detected (NotDetected) Influenza Type A (PCR) Not Detected (NotDetected) Influenza Type B (PCR) Not Detected (NotDetected) M. pneumoniae (PCR) Not Detected (NotDetected) Parainfluenza 1 (PCR) Not Detected (NotDetected) Parainfluenza 2 (PCR) Not Detected (NotDetected) Parainfluenza 3 (PCR) Not Detected (NotDetected) Parainfluenza 4 (PCR) Not Detected (NotDetected) RSV (PCR) Not Detected (NotDetected) Entero/Rhino (PCR) Not Detected (NotDetected) 05/31/23 Range/Units 10:28 WBC (4.8-10.8) K/ul RBC (4.70-6.10) M/uL Hgb (14.0-18.0) g/dl Hct (42.0-52.0) % MCV (80.0-100.0) fL MCH (25.0-34.0) pg MCHC (32.0-36.0) g/dL RDW Std Deviation (36.4-46.3) fL RDW Coeff of Ashley (11.5-14.5) % Plt Count (130-400) K/uL MPV (9.4-12.4) fL Immature Gran % (Auto) % Neut % (Auto) % Lymph % (Auto) % [place] % (Auto) % Eos % (Auto) % Baso % (Auto) % Neut # (Auto) (1.40-6.50) K/uL Lymph # (Auto) (1.2-3.4) K/uL [place] # (Auto) (0.11-0.59) K/uL Eos # (Auto) (0-0.50) K/uL Baso # (Auto) (0-0.2) K/uL Immature Gran # (Auto) (0.01-0.20) K/uL VBG pH 7.37 (7.36-7.41) VBG pCO2 49 (38-50) mmHg VBG pO2 31 mmHg VBG HCO3 28 mmol/L VBG O2 Saturation < 60.0 % VBG Base Excess 2.2 mEq/L Sodium (136-145) mmol/L Potassium (3.5-5.1) mmol/L Chloride (98-107) mmol/L Carbon Dioxide (21-32) mmol/L Anion Gap (3-11) BUN (6-23) mg/dl Creatinine (0.6-1.4) mg/dl Est Cr Clr Drug Dosing ml/min Est GFR ( Amer) ml/min Est GFR (Non-Af Amer) ml/min BUN/Creatinine Ratio (10-20) Glucose (70-99(Fasting)) mg/dl Calcium (8.6-10.3) mg/dl Magnesium (1.7-2.4) mg/dl Total Bilirubin (0.2-1.0) mg/dl Direct Bilirubin (0-0.2) mg/dl AST (13-39) U/L ALT (7-52) U/L Alkaline Phosphatase (34-104) U/L Troponin I High Sens (0-20) pg/ml Total Protein (6.0-8.3) gm/dl Albumin (3.4-5.0) gm/dl Adenovirus (PCR) (NotDetected) B. pertussis DNA (PCR) (NotDetected) B.parapertussis DNA PCR (NotDetected) C. pneumoniae DNA (PCR) (NotDetected) Coronavirus OC43 (PCR) (NotDetected) Coronavirus HKU1 (PCR) (NotDetected) Coronavirus 229E (PCR) (NotDetected) SARS-CoV-2 (PCR) (NotDetected) Coronavirus NL63 (PCR) (NotDetected) Human Metapneumovir PCR (NotDetected) Influenza Type A (PCR) (NotDetected) Influenza Type B (PCR) (NotDetected) M. pneumoniae (PCR) (NotDetected) Parainfluenza 1 (PCR) (NotDetected) Parainfluenza 2 (PCR) (NotDetected) Parainfluenza 3 (PCR) (NotDetected) Parainfluenza 4 (PCR) (NotDetected) RSV (PCR) (NotDetected) Entero/Rhino (PCR) (NotDetected) Administered Medications Doxycycline Hyclate 100 mg/ (Dextrose) 110 mls @ 50 mls/hr IV NOW STA Stop: 05/31/23 14:02 Last Admin: 05/31/23 13:24 Dose: 50 mls/hr Documented By: RSL Discontinued Medications Albuterol (Albut/Ipratrop 3mg/0.5mg Neb 3 Ml Vial) 12 ml NEB ONE ONE; Protocol Stop: 05/31/23 09:38 Last Admin: 05/31/23 09:55 Dose: 12 ml Documented By: HILDA Methylprednisolone (Methylprednisolone 125 Mg/2 Ml Vial) 125 mg IV NOW STA Stop: 05/31/23 11:52 Last Admin: 05/31/23 12:37 Dose: 125 mg Documented By: ALEXIA Imaging Data Radiologist's Impression: Chest X-Ray 05/31/23 09:38 XR chest 1V portable CLINICAL HISTORY: shortness of breath TECHNIQUE: Single frontal radiograph of the chest was obtained. Comparison: Comparison is made to chest radiograph 12/16/2021 FINDINGS: Median sternotomy wires are unchanged. The cardiomediastinal silhouette is normal. Mild emphysema is seen. No evidence of pleural effusion or pneumothorax. Eventration of the right hemidiaphragm is noted, unchanged. IMPRESSION: No acute abnormalities and in particular no radiographic evidence of pneumonia. ACT 112: Negative or not required by law. Electronically signed by: Sonny Amado M.D. 05/31/2023 9:59 AM Discharge Plan Visit Data Chief Complaint: Cough ED Provider: Donte Diaz Discharge Problem: COPD with acute exacerbation, Hypoxia Forms Stand Alone Forms: My [facility] [employer] Prescriptions Prescriptions: No Action amlodipine [Norvasc] 5 mg tablet 5 mg PO DAILY Qty: 30 5RF clopidogrel [Plavix] 75 mg tablet 75 mg PO DAILY 90 Days Qty: 30 5RF levothyroxine [Synthroid] 100 mcg tablet 100 mcg PO DAILY Qty: 30 5RF nitroglycerin 0.4 mg tablet, sublingual 0.4 mg SL .COMPLEX PRN (Reason: chest pain) Qty: 25 1RF Rx Instructions: 0.4 mg SL dissolve 1 tablet under tongue PRN; cetirizine 10 mg capsule 10 mg PO HS PRN (Reason: allergy symptoms) azelastine 137 mcg (0.1 %) aerosol,spray 2 spray intranasal DAILY Rx Instructions: administer into each nostril Ocular Vitamins 7,160 unit- 113 mg-0.5 mg Tablet 1 tab PO DAILY Xarelto 20 mg tablet 20 mg PO HS Referrals Referrals: Boaz Parikh DO [Primary Care Provider] -
--- NOTE | 2023-05-31 10:01 | XRay Report ---
XR chest 1V portable CLINICAL HISTORY: shortness of breath TECHNIQUE: Single frontal radiograph of the chest was obtained. Comparison: Comparison is made to chest radiograph 12/16/2021 FINDINGS: Median sternotomy wires are unchanged. The cardiomediastinal silhouette is normal. Mild emphysema is seen. No evidence of pleural effusion or pneumothorax. Eventration of the right hemidiaphragm is note d, unchanged. IMPRESSION: No acute abnormalities and in particular no radiographic evidence of pneumonia. ACT 112: Negative or not required by law. Electronically signed by: Sonny Amado M.D. 05/31/2023 9:59 AM
[2023-05-31 10:18] LABS: Basophils # (auto) 0.13 K/uL (0-0.2); Basophils % (auto) 1.6 %; Eosinophils # (auto) 0.54 K/uL (0-0.50); Eosinophils % (auto) 6.5 %; Hematocrit (blood only) 40.4 % (42.0-52.0); Hemoglobin 13.9 g/dl (14.0-18.0); Immature Granulocytes # (auto) 0.02 K/uL (0.01-0.20); Immature Granulocytes % (auto) 0.2 %; Lymphocytes # (auto) 2.64 K/uL (1.2-3.4); Lymphocytes % (auto) 31.6 %; Mean Corpuscular Hgb Conc 34.4 g/dL (32.0-36.0); Mean Platelet Volume 10.1 fL (9.4-12.4); Monocytes # (auto) 1.22 K/uL (0.11-0.59); Monocytes % (auto) 14.6 %; Neutrophils # (auto) 3.81 K/uL (1.40-6.50); Neutrophils % (auto) 45.5 %; Platelet Count 351 K/uL (130-400); RDW Coefficient of Variation 15.1 % (11.5-14.5); RDW Standard Deviation 49.7 fL (36.4-46.3); Red Blood Count 4.49 M/uL (4.70-6.10); White Blood Count 8.36 K/ul (4.8-10.8)
[2023-05-31 10:36] LABS: Base Excess VBG 2.2 mEq/L; HCO3 VBG 28 mmol/L; Oxygen Saturation VBG < 60.0 %; PCO2 VBG 49 mmHg (38-50); PO2 VBG 31 mmHg; pH VBG 7.37 (7.36-7.41)
[2023-05-31 10:38] LABS: BUN Creatinine Ratio 12.6 (10-20); Bilirubin Direct 0.1 mg/dl (0-0.2); Bilirubin,Total 0.5 mg/dl (0.2-1.0); Calcium 9.2 mg/dl (8.6-10.3); Creatinine Clr Calc Pharmacy 46.2 ml/min; Est GFR (African American) 74.3 ml/min; Est GFR (Non-African American) 64.1 ml/min; Magnesium 2.1 mg/dl (1.7-2.4); Potassium 3.9 mmol/L (3.5-5.1); Total Protein 7.1 gm/dl (6.0-8.3)
[2023-05-31 10:42] LABS: Troponin I High Sensitivity 6.4 pg/ml (0-20)
[2023-05-31 11:03] LABS: Adenovirus PCR Not Detected (NotDetected); Bordetella parapertussis PCR Not Detected (NotDetected); Bordetella pertussis PCR Not Detected (NotDetected); Chlamydia pneumoniae PCR Not Detected (NotDetected); Coronavirus 229E PCR Not Detected (NotDetected); Coronavirus CoV-2 (COVID19)PCR Not Detected (NotDetected); Coronavirus HKU1 PCR Not Detected (NotDetected); Coronavirus NL63 PCR Not Detected (NotDetected); Coronavirus OC43PCR Not Detected (NotDetected); Human Metapneumovirus PCR Not Detected (NotDetected); Influenza A PCR Not Detected (NotDetected); Influenza B PCR Not Detected (NotDetected); Mycoplasma pneumoniae PCR Not Detected (NotDetected); Parainfluenza Virus 1 PCR Not Detected (NotDetected); Parainfluenza Virus 2 PCR Not Detected (NotDetected); Parainfluenza Virus 3 PCR Not Detected (NotDetected); Parainfluenza Virus 4 PCR Not Detected (NotDetected); Respiratory Syncytial VirusPCR Not Detected (NotDetected); Rhinovirus/Enterovirus PCR Not Detected (NotDetected)
[2023-05-31] MEDS ORDERED: methylPREDNISolone 125 MG/2 ML VIAL IV STA (11:51)
[2023-05-31] MEDS ORDERED: DOXYCYCLINE HYCLATE 100 MG in DEXTROSE 5% 100 ML IV STA (11:51)
--- NOTE | 2023-05-31 11:51 | Electrocardiogram Report ---
Test Reason : Blood Pressure : / mmHG Vent. Rate : 071 BPM Atrial Rate : 071 BPM P-R Int : 206 ms QRS Dur : 088 ms QT Int : 410 ms P-R-T Axes : 026 -43 054 degrees QTc Int : 445 ms Normal sinus rhythm Left axis deviation Poor R wave progression, consider anterior UT vs. lead placement vs. LVH Abnormal ECG When compared with ECG of 16-DEC-2021 11:00, Premature ventricular complexes are no longer Present QRS axis Shifted left Confirmed by Tong [place] ([id number]) on 05/31/2023 11:51:22 AM Referred By: REFERRED SELF Confirmed By:Tong Green
--- NOTE | 2023-05-31 12:19 | History & Physical Report ---
Date of Service May 31, 2023 Assessment & Plan (1) Acute dyspnea: Plan: Attending: Dr. 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 Patient reports that in March of this year he began to have increased cough and yellow sputum. He was seen by his primary care provider and received antibiotics and steroids. He then followed up in 4 weeks and received another course of prednisone as a taper. No significant improvement in his cough since that time. Chief complaint for this admission is cough and fatigue. Patient was brought in the emergency department and found to be hypoxic on room air at 87%. He was given an hour-long nebulizer treatment and has significant improvement in his symptoms as well as in his oxygenation. Patient is empirically being treated with doxycycline and is being admitted. Chest x-ray shows no acute findings. No evidence of opacification, infiltrate, consolidation, pleural fluid, or pneumothorax. Patient does have slight elevation of eosinophils. Negative for leukocytosis or fever. Suspect that this is residual from viral infection Would check repeat PFTs as an outpatient secondary to tobacco abuse and Covid hx No evidence of hypercarbia on carbon dioxide from serum chemistry. VBG with no evidence of acute respiratory failure. Admit to medical telemetry due to patient's cardiac history. Obtain echocardiogram. (2) Chronic cough: Plan: Patient with history of chronic sinusitis and follows with ENT with Tyrese Slight elevation in eosinophils When stable, check IgM and [place] Rast panel as an outpatient On discharge, treat with chloramphiramine, flonase, pseudophed, and Juan Med sinus rinse (3) Anemia: Plan: Hemoglobin is currently stable. No history of acute blood loss. Continue to follow as an outpatient. (4) Sinusitis: Plan: This certainly could be contributing to the patient's cough. There is no evidence of postnasal drip in the posterior oropharynx. Consider treatment for chronic cough as listed above. Continue outpatient management with ENT. (5) Exposure to COVID-19 virus: Plan: Patient certainly could have long COVID based on symptoms. We will continue to treat chronic cough as above. Current serology is negative for SARS as well as other viral etiology. No evidence of adenovirus detected. We will prescribe incentive spirometry and encourage patient to ambulate as tolerated. (6) CAD (coronary artery disease): Plan: History of CABG in 1983. Patient continues with clopidogrel , Amlodipine, and nitroglycerin sublingually as needed. Admit patient to medical telemetry due to dyspnea. (7) Hyperlipidemia: Plan: Patient carries a diagnosis of hyperlipidemia but currently is not receiving any outpatient treatment. Will defer to outpatient cardiology and primary care office for further management. (8) Hypothyroidism: Plan: Continue with levothyroxine 100 mcg daily We will check a TSH. Most recent TSH was 2.656 in July 2022 Plan DVT prophylaxis: Patient currently anticoagulated with rivaroxaban 20 mg p.o. at bedtime. We will continue with this. Patient also will continue on clopidogrel 75 mg p.o. daily Please refer to Dr. Guthrie's addendum for further recommendations and corrections. History of Present Illness Primary Care Provider: Boaz Parikh DO Attending: Dr. Guthrie This is an 88-year-old male that follows with the [facility] office. Review of notes show that previously he saw his primary care physician in March for shortness of breath and was placed on a steroid taper as well as antibiotics. The patient presents to the emergency department today for persistent shortness of breath since that time. He reports he has been having shortness of breath over the last 2 weeks and it has not improved. Patient states that he is now to the point where he cannot ambulate around the house and this is also causing generalized weakness due to fatigue. Chart was reviewed and patient has no prior history of being seen by pulmonary. Pulmonary function test were performed in 2017 and showed no evidence of significant obstructive or restrictive disease. DLCO was not performed at that time. Patient is not on chronic oxygen. Patient is noted to have a significant tobacco abuse history of approximately 49 years. He quit smoking at age 64. Patient is currently not on any chronic inhalers and has no evidence of obstruction as previously mentioned. History of pulmonary emboli noted on CT of chest from 08/07/2021 with bilateral filling defects subsegmental he with new findings in the left lower lobe as well as right lower lobe showing consolidation. This was suspected to be secondary to COVID. Patient continues on anticoagulation with Xarelto. Upon entering the room, patient was not in acute respiratory distress. Patient noted 6 weeks of chronic cough for which she saw his PCP and was placed on antibiotics and prednisone. Per patient, the antibiotics and prednisone did not improve his symptoms dramatically. He reports that symptoms have progressed and worsened over the last few days, including vomiting for the past 2 days and excessive fatigue. Most of the history was gathered from his daughter at the bedside (Nancy), although patient was awake alert and oriented, and corroborated story. The patient reported that he had a severe case of COVID in June 2021, and had residual symptoms intermittently, including cough. Patient had noted worsening cough since March 2023, which included yellow, chunky sputum production. No hemoptysis. The patient's presentation would suggest a viral etiology, which first presented in March. No leukocytosis, but mild eosinophilia. He reports that he has not received any allergy testing. However, he does follow with ENT for chronic sinusitis. Bio fire negative. No prior viral work-up. Allergies Allergy/AdvReac Type Severity Reaction Status Date / Time rosuvastatin [From Crestor] AdvReac Intermediate cramps Verified 05/31/23 12:25 JENARO Inhibitors AdvReac Unknown PER PT'S Verified 05/31/23 12:25 DAUGHTER UNKNOWN SOME REQUIRED HOSPITALIZATION. acyclovir AdvReac Unknown PER PT'S Verified 05/31/23 12:25 DAUGHTER UNKNOWN SOME REQUIRED HOSPITALIZATION. amoxicillin AdvReac Unknown PER PT'S Verified 05/31/23 12:25 DAUGHTER UNKNOWN SOME REQUIRED HOSPITALIZATION. atorvastatin AdvReac Unknown PER PT'S Verified 05/31/23 12:25 DAUGHTER UNKNOWN SOME REQUIRED HOSPITALIZATION. benzonatate AdvReac Unknown PER PT'S Verified 05/31/23 12:25 [From Carrillo Bell] DAUGHTER UNKNOWN SOME REQUIRED HOSPITALIZATION. Beta-Adrenergic Agents AdvReac Unknown PER PT'S Verified 05/31/23 12:25 DAUGHTER UNKNOWN SOME REQUIRED HOSPITALIZATION. cefaclor AdvReac Unknown PER PT'S Verified 05/31/23 12:25 DAUGHTER UNKNOWN SOME REQUIRED HOSPITALIZATION. cephalexin AdvReac Unknown PER PT'S Verified 05/31/23 12:25 DAUGHTER UNKNOWN SOME REQUIRED HOSPITALIZATION. ciprofloxacin AdvReac Unknown PER PT'S Verified 05/31/23 12:25 DAUGHTER UNKNOWN SOME REQUIRED HOSPITALIZATION. clarithromycin AdvReac Unknown PER PT'S Verified 05/31/23 12:25 DAUGHTER UNKNOWN SOME REQUIRED HOSPITALIZATION. lisinopril AdvReac Unknown PER PT'S Verified 05/31/23 12:25 DAUGHTER UNKNOWN SOME REQUIRED HOSPITALIZATION. metoprolol [From Toprol XL] AdvReac Unknown PER PT'S Verified 05/31/23 12:25 DAUGHTER UNKNOWN SOME REQUIRED HOSPITALIZATION. morphine AdvReac Unknown PER PT'S Verified 05/31/23 12:25 DAUGHTER UNKNOWN SOME REQUIRED HOSPITALIZATION. phenylpropanolamine AdvReac Unknown PER PT'S Verified 05/31/23 12:25 DAUGHTER UNKNOWN SOME REQUIRED HOSPITALIZATION. promethazine [From Phenergan] AdvReac Unknown PER PT'S Verified 05/31/23 12:25 DAUGHTER UNKNOWN SOME REQUIRED HOSPITALIZATION. propranolol AdvReac Unknown PER PT'S Verified 05/31/23 12:25 DAUGHTER UNKNOWN SOME REQUIRED HOSPITALIZATION. simvastatin AdvReac Unknown PER PT'S Verified 05/31/23 12:25 DAUGHTER UNKNOWN SOME REQUIRED HOSPITALIZATION. Sulfa (Sulfonamide AdvReac Unknown PER PT'S Verified 05/31/23 12:25 Antibiotics) DAUGHTER UNKNOWN SOME REQUIRED HOSPITALIZATION. theophylline AdvReac Unknown PER PT'S Verified 05/31/23 12:25 DAUGHTER UNKNOWN SOME REQUIRED HOSPITALIZATION. tramadol AdvReac Unknown PER PT'S Verified 05/31/23 12:25 DAUGHTER UNKNOWN SOME REQUIRED HOSPITALIZATION. Home Medications Medication Instructions Recorded Confirmed Type cetirizine 10 mg capsule 10 mg PO HS PRN allergy symptoms 06/12/20 05/31/23 History nitroglycerin 0.4 mg sublingual 0.4 mg sublingual .COMPLEX PRN 10/24/22 05/31/23 Rx tablet chest pain #25 tabs amlodipine 5 mg tablet (Norvasc) 5 mg PO DAILY #30 tabs 02/21/23 05/31/23 Rx clopidogrel 75 mg tablet (Plavix) 75 mg PO DAILY 90 days #30 tabs 02/21/23 05/31/23 Rx levothyroxine 100 mcg tablet 100 mcg PO DAILY #30 tabs 02/21/23 05/31/23 Rx (Synthroid) azelastine 137 mcg (0.1 %) nasal 2 spray intranasal DAILY 04/20/23 05/31/23 History spray aerosol vit A 7,160 unit-vit C 113 mg-vit 1 tab PO DAILY 04/20/23 05/31/23 History Y-ftqw-vrhwdc-lutein 0.5 mg tablet (Ocular Vitamins) rivaroxaban 20 mg tablet (Xarelto) 20 mg PO HS 05/31/23 05/31/23 History Past Med/Surg History Medical History (Updated 05/31/23 @ 14:00 by Andre Esqueda PA-C) Acute dyspnea Allergic rhinitis Asplenia Benign essential hypertension CAD (coronary artery disease) Chronic cough H/O primary malignant neoplasm of urinary bladder History of pulmonary embolism Hyperlipidemia Hypothyroidism Lumbar radiculopathy Peripheral neuropathy Primary hypercoagulable state Pulmonary embolism Stroke Surgical History H/O splenectomy History of bladder surgery Hx of CABG S/P appendectomy S/P carotid endarterectomy S/P knee replacement Family History Mother Heart disease Hypertension Brother , Bladder Heart disease Diabetes Hypertension Cancer Myocardial infarction Father Hypertension Son No problems noted. 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 Beliefs That Will Affect Care: None marital status: Current Living Situation: Family Current Living Situation Comment: lives with son, daughter lives close by current occupational status: retired current occupation: [employer] How many Children do You have: 8 How many Children do You have Comment: Six living and 2 Feels Safe at Home: Yes Childhood Exposure to Second-Hand Smoke: Yes (Father smoked) Diet: regular Diet Comment: Regular diet caffeine: Yes (coffee) during the past year weight has: remained stable Dental Care, Regularly: No Physical Activity Frequency: Daily Physical Activity Frequency 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 Patient does have upper and lower dentures. No evidence mildew or a fungus on upper plate. No abrasion of the gingiva. NECK: Supple. No evidence of stridor or carotid bruits LUNGS: CTA B/L, no wheezes, rales or rhonchi. Good inspiration effort. No induced cough. HEART: Regular, rate controlled ABDOMEN: Soft, NT, ND, BS Present EXTREMITIES: Patient with some nonpitting edema on the right lower extremity with no evidence of significant edema on the left. Pedal pulses are intact and equal bilaterally NEURO: A&OX3. Pupils equal round and reactive to light. Tongue is midline. No slurred speech. No evidence of focal defect. Results & Data Results & Data Vital Signs (Past 12 Hours) Vital Signs Temp Pulse Pulse Resp BP BP Pulse Ox 05/31/23 11:25 87 24 144/72 H 95 05/31/23 11:23 36 H 87 L 05/31/23 09:57 64 18 96 05/31/23 09:50 69 05/31/23 09:26 36.5 C 76 22 147/82 H 97 O2 Del Method 05/31/23 11:25 Room Air 05/31/23 11:23 Room Air 05/31/23 09:57 Room Air 05/31/23 09:50 05/31/23 09:26 Room Air Critical Care Results & Data Vital Signs (Past 12 Hours) Vital Signs Temp Pulse Pulse Resp BP BP Pulse Ox 05/31/23 13:30 78 26 H 93 05/31/23 13:30 183/77 H 05/31/23 13:26 78 16 92 05/31/23 13:26 179/90 H 05/31/23 13:00 80 24 05/31/23 12:30 90 15 96 05/31/23 12:30 122/70 05/31/23 12:00 74 20 93 05/31/23 12:00 144/72 H 05/31/23 11:30 68 17 94 05/31/23 11:30 152/88 H 05/31/23 11:00 67 19 100 05/31/23 11:00 150/66 H 05/31/23 10:30 73 19 100 05/31/23 10:30 153/74 H 05/31/23 10:00 64 31 H 100 05/31/23 10:00 148/73 H 05/31/23 09:45 68 21 95 05/31/23 11:25 87 24 144/72 H 95 05/31/23 11:23 36 H 87 L 05/31/23 09:57 64 18 96 05/31/23 09:50 69 05/31/23 09:26 36.5 C 76 22 147/82 H 97 O2 Del Method 05/31/23 13:30 05/31/23 13:30 05/31/23 13:26 05/31/23 13:26 05/31/23 13:00 05/31/23 12:30 05/31/23 12:30 05/31/23 12:00 05/31/23 12:00 05/31/23 11:30 05/31/23 11:30 05/31/23 11:00 05/31/23 11:00 05/31/23 10:30 05/31/23 10:30 05/31/23 10:00 05/31/23 10:00 05/31/23 09:45 05/31/23 11:25 Room Air 05/31/23 11:23 Room Air 05/31/23 09:57 Room Air 05/31/23 09:50 05/31/23 09:26 Room Air Lab & Micro Results (Past 24 Hours) RBC 4.49 M/uL (4.70-6.10) L 05/31/23 WBC 8.36 K/ul (4.8-10.8) 05/31/23 Hgb 13.9 g/dl (14.0-18.0) L 05/31/23 Hct 40.4 % (42.0-52.0) L 05/31/23 MCV 90.0 fL (80.0-100.0) 05/31/23 MCH 31.0 pg (25.0-34.0) 05/31/23 MCHC 34.4 g/dL (32.0-36.0) 05/31/23 RDW Standard Deviation 49.7 fL (36.4-46.3) H 05/31/23 RDW Coefficient of Variation 15.1 % (11.5-14.5) H 05/31/23 Plt Count 351 K/uL (130-400) 05/31/23 MPV 10.1 fL (9.4-12.4) 05/31/23 Neutrophils (%) (Auto) 45.5 % 05/31/23 Lymphocytes (%) (Auto) 31.6 % 05/31/23 Monocytes # (Auto) 1.22 K/uL (0.11-0.59) H 05/31/23 Eosinophils # (Auto) 0.54 K/uL (0-0.50) H 05/31/23 Immature Granulocyte % (Auto) 0.2 % 05/31/23 Neutrophils # (Auto) 3.81 K/uL (1.40-6.50) 05/31/23 Lymphocytes # (Auto) 2.64 K/uL (1.2-3.4) 05/31/23 Monocytes # (Auto) 1.22 K/uL (0.11-0.59) H 05/31/23 Eosinophils # (Auto) 0.54 K/uL (0-0.50) H 05/31/23 Basophils # (Auto) 0.13 K/uL (0-0.2) 05/31/23 Immature Granulocyte # (Auto) 0.02 K/uL (0.01-0.20) 3 Na 141 mmol/L (136-145) 05/31/23 K 3.9 mmol/L (3.5-5.1) 05/31/23 Cl 106 mmol/L (98-107) 05/31/23 CO2 29 mmol/L (21-32) 05/31/23 Anion Gap 6 (3-11) 05/31/23 BUN 13 mg/dl (6-23) 05/31/23 Creatinine 1.03 mg/dl (0.6-1.4) 05/31/23 Estimated GFR ( Amer) 74.3 ml/min 05/31/23 Estimated GFR (Non-Af Amer) 64.1 ml/min 05/31/23 BUN/Creatinine Ratio 12.6 (10-20) 05/31/23 Glu 67 mg/dl (70-99(Fasting)) L 05/31/23 Ca 9.2 mg/dl (8.6-10.3) 05/31/23 Total Bilirubin 0.5 mg/dl (0.2-1.0) 05/31/23 Direct Bilirubin 0.1 mg/dl (0-0.2) 05/31/23 AST 17 U/L (13-39) 05/31/23 ALT 11 U/L (7-52) 05/31/23 Alkaline Phosphatase 84 U/L (34-104) 05/31/23 TP 7.1 gm/dl (6.0-8.3) 05/31/23 Albumin 4.0 gm/dl (3.4-5.0) 05/31/23 Mg 2.1 mg/dl (1.7-2.4) 05/31/23 09:53 Calcium Level 9.2 mg/dl (8.6-10.3) 05/31/23 09:53 Venous Blood pH 7.37 (7.36-7.41) 05/31/23 10:28 Venous Blood Partial Pressure CO2 49 mmHg (38-50) 05/31/23 10:2 8 Venous Blood Partial Pressure O2 31 mmHg 05/31/23 10:28 Venous Blood HCO3 28 mmol/L 05/31/23 10:28 Venous Blood Base Excess 2.2 mEq/L 05/31/23 10:28 Venous Blood Oxygen Saturation < 60.0 % 05/31/23 10:28 Diagnostic Findings (Past 24 Hours) Chest X-Ray 05/31/23 09:38 XR chest 1V portable CLINICAL HISTORY: shortness of breath TECHNIQUE: Single frontal radiograph of the chest was obtained. Comparison: Comparison is made to chest radiograph 12/16/2021 FINDINGS: Median sternotomy wires are unchanged. The cardiomediastinal silhouette is normal. Mild emphysema is seen. No evidence of pleural effusion or pneumothorax. Eventration of the right hemidiaphragm is noted, unchanged. IMPRESSION: No acute abnormalities and in particular no radiographic evidence of pneumonia. ACT 112: Negative or not required by law. Electronically signed by: Sonny Amado M.D. 05/31/2023 9:59 AM RT Ventilator Mngmt (Last Documented) Ventilator Ordered Settings Respiratory Rate 26 05/31/23 13:30 Ventilator - PT Measurements Respiratory Rate 26 Code Status & VTE Plan Code Status Discussion with patient and his power of employment attorney and daughter who was present in the room. Patient desires to be a full resuscitation at this time. Patient does have a legal p.o. a for his daughter and her sister. The daughter states that she will bring that in to add to the record. VTE Prophylaxis Plan VTE Prophylaxis will be ordered: Yes Supervising Physician Co-Signing Physician Notes Patient seen and examined, chart reviewed, case discussed with Andre Esqueda and I agree with the assessment and plan as above except as otherwise noted Labs and images reviewed Patient seen at the bedside for chronic cough and shortness of breath. He is breathing comfortably on room air hypoxic. He reports that he had COVID several months ago and for the last approximate 2 months has had increased cough and yellow sputum and continued cough for the last 6 weeks. Reports his oxygen levels were low earlier today, however they were normal and improved following nebulizer. Does not have a known history of COPD. At bedside assessment he is comfortable in no acute distress. Hard of hearing, but is able to hear adequately once he returns on his hearing aid. Lungs are clear without wheezes at time of reassessment. Agree with assessment and management above. Chronic cough syndrome, agree with plan./Flonase/pseudoephedrine sinus drainage. No indication for acute antibiotics at this time. Hypoxia is improved following return to floor, goal SPO2 greater than 90%. PG Care Time/CCT Total # of Minutes Spent Total Time Spent with Patient: Total time spent is greater than 50% in coordination of care (as documented) at patient's floor/unit and/or counseling patient:60 minutes including [id number] discussion with the patient and his daughter. Coding Level of Care Code 79372 INT INP/OBS CARE 3/75MIN Diagnoses Acute dyspnea R06.00 Chronic cough R05.3 Anemia D64.9 Sinusitis J32.9 Exposure to COVID-19 virus Z20.822 CAD (coronary artery disease) I25.10 Hyperlipidemia E78.5 Hypothyroidism E03.9
--- NOTE | 2023-05-31 15:20 | Ultrasound Report ---
US venous doppler LE RT CLINICAL HISTORY: Asymmetrical edema TECHNIQUE: Right lower extremity real-time compression venous ultrasound with Color Doppler imaging. Utilizing real-time ultrasonic imaging multiple real time high-resolution ultrasonic images with comp ression and noncompression maneuvers of the deep venous system in addition to color doppler imaging w ere performed from the common femoral vein through the proximal calf veins. COMPARISON: Comparison is made to a venous ultrasound 04/20/2023 FINDINGS/IMPRESSION: Currently there is normal compressibility of the deep venous system from the common femoral vein thro ugh the proximal calf veins. No superficial venous thrombosis is identified. ACT 112: Negative or not required by law. Electronically signed by: Sonny Amado M.D. 05/31/2023 3:19 PM
[2023-05-31] MEDS ORDERED: POLYETHYLENE (MIRALAX) 17 GM PACK PO PRN (18:26)
[2023-05-31] MEDS ORDERED: NITROGLYCERIN SL 0.4 MG/TAB TAB SL PRN (18:26)
[2023-05-31] MEDS ORDERED: ALUMINUM/MAGNESIUM SUSP 30 ML UDC PO PRN (18:26)
[2023-05-31] MEDS ORDERED: ACETAMINOPHEN 325 MG TAB PO PRN (18:26)
[2023-05-31] MEDS ORDERED: CETIRIZINE HCL 10 MG TABLET PO PRN (18:55)
[2023-05-31] MEDS ORDERED: RIVAROXABAN 20 MG TAB PO SCH (21:00)
[2023-06-01] MEDS ORDERED: LEVOTHYROXINE SODIUM 100 MCG TABLET PO SCH ×2 (06:30→09:00)
[2023-06-01 08:13] LABS: Basophils # (auto) 0.02 K/uL (0-0.2); Basophils % (auto) 0.2 %; Hematocrit (blood only) 40.8 % (42.0-52.0); Hemoglobin 14.2 g/dl (14.0-18.0); Immature Granulocytes # (auto) 0.05 K/uL (0.01-0.20); Immature Granulocytes % (auto) 0.4 %; Lymphocytes # (auto) 1.75 K/uL (1.2-3.4); Lymphocytes % (auto) 14.2 %; Mean Corpuscular Hemoglobin 30.9 pg (25.0-34.0); Mean Corpuscular Hgb Conc 34.8 g/dL (32.0-36.0); Mean Corpuscular Volume 88.7 fL (80.0-100.0); Mean Platelet Volume 10.1 fL (9.4-12.4); Monocytes # (auto) 0.83 K/uL (0.11-0.59); Monocytes % (auto) 6.7 %; Neutrophils # (auto) 9.71 K/uL (1.40-6.50); Neutrophils % (auto) 78.5 %; Platelet Count 380 K/uL (130-400); RDW Coefficient of Variation 14.8 % (11.5-14.5); RDW Standard Deviation 48.3 fL (36.4-46.3); White Blood Count 12.36 K/ul (4.8-10.8)
[2023-06-01 08:29] LABS: BUN Creatinine Ratio 17.7 (10-20); Calcium 9.3 mg/dl (8.6-10.3); Creatinine Clr Calc Pharmacy 49.6 ml/min; Est GFR (African American) 80.9 ml/min; Est GFR (Non-African American) 69.8 ml/min; Potassium 4.2 mmol/L (3.5-5.1)
[2023-06-01] MEDS ORDERED: AZELASTINE HCL 0.1% NASAL 200 SPRAYS/27,400 MCG BTL NAE SCH (09:00)
[2023-06-01] MEDS ORDERED: amLODIPine BESYLATE 5 MG TAB PO SCH (09:00)
[2023-06-01] MEDS ORDERED: CEROVITE ADV FORMULA TAB PO SCH (09:00)
[2023-06-01] MEDS ORDERED: CLOPIDOGREL BISULFATE 75 MG TAB PO SCH (09:00)
--- NOTE | 2023-06-01 09:52 | XRay Report ---
XR chest 1V portable CLINICAL HISTORY: Acute hypoxia TECHNIQUE: Single frontal radiograph of the chest was obtained. Comparison: Comparison is made to chest radiograph 05/31/2023 FINDINGS: Median sternotomy wires are unchanged. Calcified aortic knob is seen. The lungs are clear. No evidenc e of pleural effusion or pneumothorax. IMPRESSION: No acute chest disease. ACT 112: Negative or not required by law. Electronically signed by: Sonny Amado M.D. 06/01/2023 9:51 AM
--- NOTE | 2023-06-01 12:35 | XCELERA ---
[id number]
--- NOTE | 2023-06-01 14:18 | Electrocardiogram Report ---
Test Reason : Blood Pressure : / mmHG Vent. Rate : 080 BPM Atrial Rate : 080 BPM P-R Int : 200 ms QRS Dur : 096 ms QT Int : 412 ms P-R-T Axes : 048 -07 033 degrees QTc Int : 475 ms Normal sinus rhythm Possible Inferior infarct , age undetermined Poor R wave progression, consider anterior ME vs. lead placement vs. LVH Abnormal ECG When compared with ECG of 31-MAY-2023 09:33, Borderline criteria for Inferior infarct are now Present Questionable change in initial forces of Anterior leads Confirmed by Tong Green ([id number]) on 06/01/2023 2:17:44 PM Referred By: REFERRED SELF Confirmed By:Tong Green
[2023-06-01] MEDS ORDERED: OPTIRAY 320 100ml IV ONE (14:43)
--- NOTE | 2023-06-01 15:14 | CT Scan Report ---
CT soft tissue neck w con CT DOSE: CLINICAL HISTORY: h/o submucosal lesion of throat TECHNIQUE: Multiaxial CT images of the neck were performed following the intravenous administration o f contrast. Sagittal and coronal reformations were performed at the work station by the radiologist. A dose lowering technique was utilized adhering to the principles of ALARA. COMPARISON STUDY: CTA neck 12/16/2021. FINDINGS: The visualized brain parenchyma is unremarkable. There is mucosal thickening within the max illary sinuses with near complete opacification of the right maxillary sinus and calcified inspissate d secretions. This is consistent with chronic change. There is chronic opacification of the right mas toid air cells and right middle ear cavity. Small left mastoid effusion is also unchanged. No acute f ractures identified. The lung apices will be reported on the same day chest CT. The pterygopalatine f savannah and parapharyngeal fat spaces are well-maintained. Mild fullness within the left side of the abby lecula in comparison to the right with suggestion of a 9 mm nodule/cyst within the left side of the v allecula. This appears to have slightly decreased in size. Remaining major mucosal airways services a re intact. The epiglottis and prevertebral soft tissues are normal in thickness. No cervical lymphade nopathy or abscess identified. Focal narrowing within the distal right cervical internal carotid dari ry on image 25 remains unchanged. There is mild focal narrowing at the takeoff of the left internal c arotid artery which has slightly progressed. The parotid and submandibular glands are symmetric. IMPRESSION: 1. Mild fullness within the left side of the vallecula which has improved compared to the prior study . A 9 mm hypodense nodule at the left side of the vallecula has also decreased in size. This could re present a retention cyst. 2. No cervical lymphadenopathy. 3. Mild focal narrowing at the takeoff of the left internal carotid artery which has slightly progres sed. 4. [id number]-lq-[id number] focal narrowing within the distal right cervical internal carotid artery, unchang ed. 5. Additional findings as described above. ACT 112: Negative or not required by law. Electronically signed by: Parviz Alcantara M.D. 06/01/2023 3:13 PM
--- NOTE | 2023-06-01 15:15 | CT Scan Report ---
CT sinus wo con CLINICAL HISTORY: h/o gaines-sinus disease TECHNIQUE: Multidetector axial CT images through the sinuses were obtained. Coronal and sagittal refo rmations were also obtained. Automated dose lowering techniques and/or adjustment according to patien t size were utilized for this examination. CT DOSE: 1747.55 mGy.cm Comparison: Comparison is made to 328 2 FINDINGS: There is diffuse sinus disease, similar to prior exam. The orbits appear normal. There are no acute f ractures of the calvaria or scalp swelling. Right mastoid effusion is seen. IMPRESSION: 1. Extensive sinus disease, similar to prior exam. 2. Right mastoid effusion, unchanged, mastoiditis cannot be excluded. ACT 112: Negative or not required by law. Electronically signed by: Sonny Amado M.D. 06/01/2023 3:14 PM
--- NOTE | 2023-06-01 15:24 | CT Scan Report ---
CHEST CT WITH CONTRAST HISTORY: Chronic cough chronic cough/chronic dyspnea, ?bronchitis TECHNIQUE: Multiaxial CT images of the chest were performed following the IV administration of 92 cc of Optiray. A dose lowering technique was utilized adhering to the principles of ALARA. COMPARISON: CT soft tissue neck of same day, CT neck 12/16/2021. FINDINGS: No thyroid nodule identified. Scattered borderline enlarged mediastinal and hilar lymph nod es measure up to 9-10 mm. The heart is mildly enlarged. Extensive coronary artery calcifications. Solange or median sternotomy with CABG. Atherosclerosis of the aorta without aneurysm. The opacified pulmonar y artery is unremarkable. No pneumothorax, pleural effusion or overt pulmonary edema. Biapical pleural-parenchymal scarring wit h calcified pleural plaques. Calcified granuloma of the right upper lobe. 4 mm solid nodule in the ap ical segment right upper lobe on image 74. Mild cylindrical bronchiectasis of the lung bases. Subsegm ental right basilar atelectasis versus scarring. Central airways are patent. Colonic diverticulosis. Probable splenic tissue within the abdominal quadrant, 3.6 cm. Asymmetric atr ophy with cortical thinning of the left kidney. Unremarkable soft tissues. No acute fracture. IMPRESSION: 1. No pleural effusion or airspace consolidation to suggest pneumonia. 2. Biapical pleural parenchymal scarring with mild subsegmental bibasilar atelectasis versus scarring . 3. Borderline enlarged mediastinal and hilar lymph nodes. 4. Colonic diverticulosis. ACT 112: Negative or not required by law. Electronically signed by: Jorge L Crooks M.D. 06/01/2023 3:23 PM
[2023-06-01] MEDS ORDERED: SODIUM CHLORIDE 0.9% 500 ML IV SCH (15:45)
[2023-06-01] MEDS ORDERED: FLUTICASONE/VILANTEROL 100/25MCG 14 PUFFS/INHALER INH SCH (15:45)
[2023-06-01] MEDS ORDERED: predniSONE 20 MG TAB PO STA (15:46)
--- NOTE | 2023-06-01 18:12 | Discharge Summary ---
Date of Service June 01, 2023 Admission HPI Per Admitting Provider Attending: Dr. Guthrie This is an 88-year-old male that follows with the [facility] office. Review of notes show that previously he saw his primary care physician in March for shortness of breath and was placed on a steroid taper as well as antibiotics. The patient presents to the emergency department today for persistent shortness of breath since that time. He reports he has been having shortness of breath over the last 2 weeks and it has not improved. Patient states that he is now to the point where he cannot ambulate around the house and this is also causing generalized weakness due to fatigue. Chart was reviewed and patient has no prior history of being seen by pulmonary. Pulmonary function test were performed in 2017 and showed no evidence of significant obstructive or restrictive disease. DLCO was not performed at that time. Patient is not on chronic oxygen. Patient is noted to have a significant tobacco abuse history of approximately 49 years. He quit smoking at age 64. Patient is currently not on any chronic inhalers and has no evidence of obstruction as previously mentioned. History of pulmonary emboli noted on CT of chest from 08/07/2021 with bilateral filling defects subsegmental he with new findings in the left lower lobe as well as right lower lobe showing consolidation. This was suspected to be secondary to COVID. Patient continues on anticoagulation with Xarelto. Upon entering the room, patient was not in acute respiratory distress. Patient noted 6 weeks of chronic cough for which she saw his PCP and was placed on antibiotics and prednisone. Per patient, the antibiotics and prednisone did not improve his symptoms dramatically. He reports that symptoms have progressed and worsened over the last few days, including vomiting for the past 2 days and excessive fatigue. Most of the history was gathered from his daughter at the bedside (Nancy), although patient was awake alert and oriented, and corroborated story. The patient reported that he had a severe case of COVID in June 2021, and had residual symptoms intermittently, including cough. Patient had noted worsening cough since March 2023, which included yellow, chunky sputum production. No hemoptysis. The patient's presentation would suggest a viral etiology, which first presented in March. No leukocytosis, but mild eosinophilia. He reports that he has not received any allergy testing. However, he does follow with ENT for chronic sinusitis. Bio fire negative. No prior viral work-up. Discharge Data Allergies Allergy/AdvReac Type Severity Reaction Status Date / Time rosuvastatin [From Crestor] AdvReac Intermediate cramps Verified 05/31/23 12:25 JENARO Inhibitors AdvReac Unknown PER PT'S Verified 05/31/23 12:25 DAUGHTER UNKNOWN SOME REQUIRED HOSPITALIZATION. acyclovir AdvReac Unknown PER PT'S Verified 05/31/23 12:25 DAUGHTER UNKNOWN SOME REQUIRED HOSPITALIZATION. amoxicillin AdvReac Unknown PER PT'S Verified 05/31/23 12:25 DAUGHTER UNKNOWN SOME REQUIRED HOSPITALIZATION. atorvastatin AdvReac Unknown PER PT'S Verified 05/31/23 12:25 DAUGHTER UNKNOWN SOME REQUIRED HOSPITALIZATION. benzonatate AdvReac Unknown PER PT'S Verified 05/31/23 12:25 [From Carrillo Bell] DAUGHTER UNKNOWN SOME REQUIRED HOSPITALIZATION. Beta-Adrenergic Agents AdvReac Unknown PER PT'S Verified 05/31/23 12:25 DAUGHTER UNKNOWN SOME REQUIRED HOSPITALIZATION. cefaclor AdvReac Unknown PER PT'S Verified 05/31/23 12:25 DAUGHTER UNKNOWN SOME REQUIRED HOSPITALIZATION. cephalexin AdvReac Unknown PER PT'S Verified 05/31/23 12:25 DAUGHTER UNKNOWN SOME REQUIRED HOSPITALIZATION. ciprofloxacin AdvReac Unknown PER PT'S Verified 05/31/23 12:25 DAUGHTER UNKNOWN SOME REQUIRED HOSPITALIZATION. clarithromycin AdvReac Unknown PER PT'S Verified 05/31/23 12:25 DAUGHTER UNKNOWN SOME REQUIRED HOSPITALIZATION. lisinopril AdvReac Unknown PER PT'S Verified 05/31/23 12:25 DAUGHTER UNKNOWN SOME REQUIRED HOSPITALIZATION. metoprolol [From Toprol XL] AdvReac Unknown PER PT'S Verified 05/31/23 12:25 DAUGHTER UNKNOWN SOME REQUIRED HOSPITALIZATION. morphine AdvReac Unknown PER PT'S Verified 05/31/23 12:25 DAUGHTER UNKNOWN SOME REQUIRED HOSPITALIZATION. phenylpropanolamine AdvReac Unknown PER PT'S Verified 05/31/23 12:25 DAUGHTER UNKNOWN SOME REQUIRED HOSPITALIZATION. promethazine [From Phenergan] AdvReac Unknown PER PT'S Verified 05/31/23 12:25 DAUGHTER UNKNOWN SOME REQUIRED HOSPITALIZATION. propranolol AdvReac Unknown PER PT'S Verified 05/31/23 12:25 DAUGHTER UNKNOWN SOME REQUIRED HOSPITALIZATION. simvastatin AdvReac Unknown PER PT'S Verified 05/31/23 12:25 DAUGHTER UNKNOWN SOME REQUIRED HOSPITALIZATION. Sulfa (Sulfonamide AdvReac Unknown PER PT'S Verified 05/31/23 12:25 Antibiotics) DAUGHTER UNKNOWN SOME REQUIRED HOSPITALIZATION. theophylline AdvReac Unknown PER PT'S Verified 05/31/23 12:25 DAUGHTER UNKNOWN SOME REQUIRED HOSPITALIZATION. tramadol AdvReac Unknown PER PT'S Verified 05/31/23 12:25 DAUGHTER UNKNOWN SOME REQUIRED HOSPITALIZATION. Consultations 05/31/23 12:10 ED Decision to Admit Stat 06/01/23 15:51 Burn CD for patient Routine Ordered Studies 05/31/23 14:27 US venous duplex leg [US venous doppler LE RT] Stat 06/01/23 13:03 CT chest diagnostic w con Routine 06/01/23 13:05 CT sinus wo con Routine CT soft tissue neck w con Routine Hospital Course (1) Acute dyspnea: Attending: Dr. Guthrie Impression: 88-year-old male that is a danielle that had COVID in 2020 with pulmonary emboli and on chronic anticoagulation with Xarelto. Patient re ports that in March of this year he began to have increased cough and yellow sputum. He was seen by his primary care provider and received antibiotics and steroids. He then followed up in 4 weeks and received another course of prednisone as a taper. No significant improvement in his cough since that time. Chief complaint for this admission is cough and fatigue. Patient was brought in the emergency department and found to be hypoxic on room air at 87%. He was given an hour-long nebulizer treatment and has significant improvement in his symptoms as well as in his oxygenation. Patient is empirically being treated with doxycycline and is being admitted. Chest x-ray shows no acute findings. No evidence of opacification, infiltrate, consolidation, pleural fluid, or pneumothorax. Patient does have slight elevation of eosinophils. Negative for leukocytosis or fever. Suspect that this is residual from viral infection Would check repeat PFTs as an outpatient secondary to tobacco abuse and Covid hx No evidence of hypercarbia on carbon dioxide from serum chemistry. VBG with no evidence of acute respiratory failure. Admit to medical telemetry due to patient's cardiac history. Obtain ec hocardiogram. (2) Chronic cough: Patient with history of chronic sinusitis and follows with ENT with [facility] Slight elevation in eosinophils When stable, check IgM and NE Rast panel as an outpatient On discharge, treat with chloramphiramine, flonase, pseudophed, and Juan Med sinus rinse (3) Anemia: Hemoglobin is currently stable. No history of acute blood loss. Continue to follow as an outpatient. (4) Sinusitis: This certainly could be contributing to the patient's cough. There is no evidence of postnasal drip in the posterior oropharynx. Consider treatment for chronic cough as listed above. Continue outpatient management with ENT. (5) Exposure to COVID-19 virus: Patient certainly could have long COVID based on symptoms. We will continue to treat chronic cough as above. Current serology is negative for SARS as well as other viral etiology. No evidence of adenovirus detected. We will prescribe incentive spirometry and encourage patient to ambulate as tolerated. (6) CAD (coronary artery disease): History of CABG in 1983. Patient continues with clopidogrel , Amlodipine, and nitroglycerin sublingually as needed. Admit patient to medical telemetry due to dyspnea. (7) Hyperlipidemia: Patient carries a diagnosis of hyperlipidemia but currently is not receiving any outpatient treatment. Will defer to outpatient cardiology and primary care office for further management. (8) Hypothyroidism: Continue with levothyroxine 100 mcg daily We will check a TSH. Most recent TSH was 2.656 in July 2022 Plan DVT prophylaxis: Patient currently anticoagulated with rivaroxaban 20 mg p.o. at bedtime. We will continue with this. Patient also will continue on clopidogrel 75 mg p.o. daily Please refer to Dr. Guthrie's addendum for further recommendations and corrections. Discharge Plan Discharge Items Patient Disposition: Home - Self-Care Reason For Visit: COUGH WITH ACUTE DYSPNEA Discharge Diagnosis: 1. acute on chronic cough - due to sinus disease and/or the lung conditions listed in #2 below 2. shortness of breath - suspect due to obstructive lung disease (asthma, other bronchial condition, etc) and/or bronchiectasis - pulmonary follow-up needed 3. severe sinus disease - ENT follow-up needed 4. past history of pulmonary emboli Activity: As commented below Activity Comment: gradually increase activities as tolerated over the next week Non-emergency contact: Primary Care Provider and Specialist Call non-emergency contact if: you have any medication questions, your symptoms worsen and you have a fever Follow-up/Referrals: Jose Ross MD, [facility] [Physician] - 06/03/23 9:45 am (any pulmonary provider at [facility]; diagnosis - chronic cough, shortness of breath, sinus disease) Boaz Parikh DO [Primary Care Provider] - (7-10 days ) Devi Dumont MD [Surgeon] - 07/09/23 9:45 am (apptointment is in [facility]...first they had available. within 2 weeks; follow-up of severe sinus disease ) Diet: Heart Healthy Addtl Attending Provider Instructions: Mr Garduno, You were hospitalized for cough and shortness of breath. You have been having these symptoms off & on for several months. Your symptoms improved rapidly after receiving an hour-long nebulizer treatment in the ER along with a dose of IV steroids. This would suggest that many of your symptoms are due to a bronchial condition of the lungs. Bronchial irritation/bronchial wheezing/etc can respond rapidly in many cases to steroids and breathing treatments. A CT scan of the lungs did not show pneumonia. There was a small amount of something called "bronchiectasis" at the bottom of the lungs that can cause chronic cough and shortness of breath. We are setting you up with [facility] and they can do additional testing to determine if the bronchiectasis and/or another bronchial condition are the main culprits for your symptoms. We also performed a CT scan of your sinuses. This showed severe sinus disease throughout most of your sinuses. It looked similar in appearance to your 2021 CT of the sinuses done by [facility]. Your sinus disease could be contributing to your chronic cough. A CT scan of your neck did not show any suspicious masses or tumors/cancer. Finally, echocardiogram of your heart was relatively normal. I do not think a primary heart problem is causing your cough/shortness of breath. Recommendations - 1. take a prednisone course with food; start this TOMORROW, 06/02/23. This may help your sinuses. It will also reduce inflammation in your lungs. 2. take your zyrtec (cetirizine) allergy medication EVERY day (rather than as needed). 3. take Breo inhaler 1 puff daily; rinse your mouth with water after each use and spit the water out. This is for your chronic cough. Start 06/02/23. The [facility] ladle filler will let you know whether you should stay on this long- term. We have provided a sample of this to you. 4. for cough/wheezing/shortness of breath take albuterol (via spacer device - see handout) 2 puffs every 4 hours as needed. 5. bring your CD to the ENT appointment at [facility] that way the ENT doctor can review your CT scan of the sinuses. 6. your blood pressures were high while here. This is possibly due to the steroids/prednisone. Anxiety and simply being uncomfortable in the hospital can also increase your blood pressures. Please monitor your blood pressures at home - ideally check your blood pressure once a day at home. Write these numbers down and show them to your family doctor. 7. consider using a saline spray OR a Neti Pot device to rinse your sinuses daily. This may help with congestion and your chronic sinus issues. Follow-up - see separate section Return to [facility] if - * you have fevers over 100 degrees * you have worsening shortness of breath * you have chest pains * any other concerns It was our pleasure to care for you! -Dr Gatica Pending Studies at Discharge: No Stand-Alone Forms: [facility], Smoking Cessation Medications and DC Order Prescriptions: New fluticasone furoate-vilanterol [Breo Ellipta] 100-25 mcg/dose Blister With Device 1 puff inhalation DAILY Qty: 1 1RF Rx Instructions: rinse mouth with water after use and spit out prednisone 10 mg tablet 10 mg PO DIRECTED Qty: 17 0RF Rx Instructions: start 06/02/23, take with food. 3 tabs PO QD x 3 days; 2 tabs PO QD x 3 days; 1 tab PO QD x 2 days. albuterol sulfate [Ventolin HFA] 90 mcg/actuation HFA aerosol inhaler 2 inh inhalation Q4H PRN (Reason: shortness of breath or wheezing or cough) Qty: 8.5 0RF Rx Instructions: use with spacer device (DME) Aerochamber MV Spacer See Rx Instructions .Route Qty: 10 0RF Rx Instructions: As directed Continued amlodipine [Norvasc] 5 mg tablet 5 mg PO DAILY Qty: 30 5RF clopidogrel [Plavix] 75 mg tablet 75 mg PO DAILY 90 Days Qty: 30 5RF levothyroxine [Synthroid] 100 mcg tablet 100 mcg PO DAILY Qty: 30 5RF nitroglycerin 0.4 mg tablet, sublingual 0.4 mg SL .COMPLEX PRN (Reason: chest pain) Qty: 25 1RF Rx Instructions: 0.4 mg SL dissolve 1 tablet under tongue PRN; azelastine 137 mcg (0.1 %) aerosol,spray 2 spray intranasal DAILY Rx Instructions: administer into each nostril Ocular Vitamins 7,160 unit- 113 mg-0.5 mg Tablet 1 tab PO DAILY Xarelto 20 mg tablet 20 mg PO HS Changed cetirizine 10 mg capsule 10 mg PO HS Qty: 1 0RF Discharge Orders: Discharge Order (Routine); Ordered 06/01/23 Ordered By: Rick Gamble/Other Patient Handouts: Using an Inhaler with a Spacer, Understanding Sinus Problems, ED Chronic Cough [facility] Adult Admission Data Admit Date/Time: 05/31/23 14:27 Attending Provider: Rick Gatica Admit Provider: Papito Guthrie Primary Care Provider: Boaz Parikh Other Providers: Papito Guthrie Other Interventions: Discharge Summary Assessment (RN) Last Done: 06/01/23 17:29 Coding Diagnoses Acute dyspnea R06.00 Chronic cough R05.3 Anemia D64.9 Sinusitis J32.9 Exposure to COVID-19 virus Z20.822 CAD (coronary artery disease) I25.10 Hyperlipidemia E78.5 Hypothyroidism E03.9
== END 2023-06-01 18:35 | disposition home or self-care (01) ==
LOC: 2N 09:22 → ED 09:22 → SUATTDRO 14:27 → 2N 16:43